=== PATIENT | male | born 1955 | race Caucasian/White ===

== ENCOUNTER 2019-11-20 11:12 | Outpatient (CLI) | payer OTHER, SELFPAY ==
--- NOTE | 2019-11-20 13:52 | PFTS_ITS ---
Date of Study:11/20/19 Date of Dictation: MECHANICS: Forced vital capacity (FVC) is normal. Forced expiratory volume in one second (FEV1) is reduced. FEV1/FVC is reduced. FLOW VOLUME LOOP: Reduced flow at all lung volumes with significant scooping. LUNG VOLUMES: Total lung capacity (TLC) is normal. Residual volume (RV) is elevated. DIFFUSING CAPACITY FOR CARBON MONOXIDE: Mild reduced. INTERPRETATION: The pulmonary function tests are consistent with moderate airflow obstruction. There is significant postbronchodilator response with improvement of forced vital capacity. Lung volumes are consistent with air trapping. Gas exchange (DLCO) is mildly reduced. MTDD
== END 2019-11-20 11:13 | disposition home or self-care (01) ==
LOC: RT 11:16
PROVIDERS: PCP Emergency Medicine Emergency Medical Services; Visit Provider Internal Medicine
DX: J44.9 Chronic obstructive pulmonary disease, unspecified (principal)
CPT/HCPCS: 94060; 94726; 94729; J7611

== ENCOUNTER → 2022-04-13 14:38 | Outpatient (BNVA) | payer OTHER, SELFPAY | PROVIDERS: PCP Emergency Medicine Emergency Medical Services; Visit Provider Thoracic Surgery (Cardiothoracic Vascular Surgery) | DX: I65.29 Occlusion and stenosis of unspecified carotid artery (principal); I10 Essential (primary) hypertension; Z87.891 Personal history of nicotine dependence | CPT/HCPCS: 99203 ==

== ENCOUNTER 2022-04-21 16:09 | Outpatient (CLI) | payer OTHER, SELFPAY ==
--- NOTE | 2022-04-21 16:15 | CT_ITS ---
WS: [id number] CT ANGIOGRAM CAROTID ARTERIES HISTORY: carotid stenosis TECHNIQUE: CT angiogram is performed of the carotid arteries. During arterial injection imaging is ob tained from the skull base to the aortic arch in 1.25 mm imaging. Coronal and sagittal reformats are submitted, MIP imaging also reviewed. Additional multiplanar reformats of the carotid arteries are griffin bmitted. NASCET criteria utilized. All CT scans at [facility] use at least one of these dose optimization techniques: automated exposure control; mA and/or kV adjustment per patient size (includ es targeted exams where dose is matched to clinical indication); or iterative reconstruction. CONTRAST: Omnipaque 350; 95 mL IV. DLP: 258.15 mGy.cm COMPARISON: None available. Right carotid: Common carotid artery: Arises normally from the innominate artery. There are a few focal calcified pl aques along the distal artery. Increasing plaque burden bifurcation. Internal carotid artery: Large amount of calcified plaque with blooming artifact. High-grade stenosis , estimated at 70%. External carotid artery: Patent. Left carotid: Common carotid artery: Arises normally from the arch. Scattered plaque. No stenosis. Internal carotid artery: Large amount of plaque at the bifurcation extending into the proximal ICA. E stimated at 77% stenosis. External carotid artery: Patent. Right vertebral artery: Unremarkable. Left vertebral artery: Occluded. Vertebral artery is not identified proximally. There is a very small amount of contrast within the distal LEFT vertebral artery approaching the skull base. Subclavian arteries: Calcified and noncalcified plaque in the subclavian arteries. Approximately 50% stenosis in the proximal LEFT subclavian artery. Plaque in the RIGHT subclavian artery with no stenos is. Upper thorax: Large RIGHT upper lobe bulla. Centrilobular emphysema. Atherosclerosis aortic arch and proximal great vessels. Thyroid gland: Normal. Osseous structures: Degenerative disc disease. Mild straightening of the normal cervical lordosis. Skull base: CT/CT angio neck 79295 IMPRESSION: 1. Large amount of calcified plaque in the cervical carotid bifurcations. 2. Proximal RIGHT cervical carotid artery stenosis estimated at 70%. Stenosis appears greater visually. 3. Proximal LEFT cervical carotid artery stenosis estimated at 77%. Stenosis a ppears greater visually. 4. 50% stenosis LEFT subclavian artery.
[2022-04-21 17:01] LABS: Blood Urea Nitrogen 10 mg/dL (8-23); Glomerular Filtration Rate 135.2 mL/min (90-130)
[2022-04-21] MEDS: iohexol 350 mg/mL 100 mL Btl IV (17:02)
== END 2022-04-21 16:10 | disposition home or self-care (01) ==
PROVIDERS: PCP Emergency Medicine Emergency Medical Services; Visit Provider Thoracic Surgery (Cardiothoracic Vascular Surgery)
DX: I65.23 Occlusion and stenosis of bilateral carotid arteries (principal); I70.8 Atherosclerosis of other arteries
CPT/HCPCS: 70498; 82565; 84520

== ENCOUNTER → 2022-05-04 15:09 | Outpatient (BNVA) | payer OTHER, SELFPAY | PROVIDERS: PCP Emergency Medicine Emergency Medical Services; Visit Provider Thoracic Surgery (Cardiothoracic Vascular Surgery) | DX: I65.29 Occlusion and stenosis of unspecified carotid artery (principal); Z87.891 Personal history of nicotine dependence | CPT/HCPCS: 99213 ==

== ENCOUNTER 2022-07-06 01:00 | Day surgery (SDC) | payer OTHER, SELFPAY ==
[2022-07-06 11:00] VITALS: BMI 24.7
--- NOTE | 2022-07-06 11:28 | ECG_ITS ---
[facility] Test Date: 2022-07-06 Pat Name: Wilson Shane Department: Room: Gender: Male Digital Marketing Specialist: : 1955 Requested By: Huey Odell Order Number: [id number] Venu MD: Elisabeth Townsend M.D. Measurements Intervals [place] Rate: 64 P: 84 [place]: 175 QRS: 85 QRSD: 91 T: 78 QT: 391 QTc: 405 Interpretive Statements SINUS RHYTHM Compared to ECG 05/16/2019 13:21:39 No significant changes Electronically Signed On 07-06-2022 20:48:34 DOCK SUPERVISOR by Elisabeth Townsend M.D. [email or web address] [email or web address].[employer]/store/OM/[id number]
--- NOTE | 2022-07-06 11:38 | ANES.PREANE2 ---
Pre-Anesthetic Assessment Height/Weight: Height 1.6 m Weight 63.503 kg Operation Date: 07/11/22 07:00 Proposed Procedures p left carotid surgery 74308,I65.23(Left) - Huey Odell MD Familial anesthetic complications: no history Social No tobacco (quit 5 years ago) 3.5 ppd for 25 years Exam alert, oriented x 3 and clear to auscultation bilaterally Airway Comments: Comments: denies but some missing History/ROS No significant history except as noted Pulmonary Chronic Obstructive Pulmonary Disease CV/HEM Stable Angina (had CP last week; took Nitro and it resolved- has not used in [address] Odell's office to CP and notified pt his procedure may need to be rescheduled) and Hypertension None reported Hepatic None reported GI Gastroesophageal Reflux Disease (controlled) Metabolic None reported Musc/skel Lower Back Pain (bulging disc low back) and Osteoarthritis/DJD Neuropsych None reported Anesthetic Plan ASA status: 3 Anesthesia: General Risk of > 500 ml blood loss (7ml/kg in children): No Medications/Allergies Home Medications Medication Instructions Recorded Confirmed Last Taken Type albuterol sulfate 90 mcg/actuation 1 puff inhalation QID 04/13/22 07/06/22 07/05/22 History aerosol inhaler amlodipine 10 mg tablet 10 mg PO DAILY 04/13/22 07/06/22 07/05/22 History ascorbic acid (vitamin C) 500 mg 500 mg PO DAILY 04/13/22 07/06/22 07/06/22 History capsule aspirin 81 mg tablet,delayed 81 mg PO DAILY 04/13/22 07/06/22 07/06/22 History release atenolol 100 mg tablet 100 mg PO DAILY 04/13/22 07/06/22 07/06/22 History baclofen 20 mg tablet 40 mg PO TID 04/13/22 07/06/22 07/06/22 History cholecalciferol (vitamin D3) 50 50 mcg PO DAILY 04/13/22 07/06/22 07/06/22 History mcg (2,000 unit) capsule dicyclomine 10 mg capsule 20 mg PO TID 04/13/22 07/06/22 07/06/22 History gabapentin 300 mg capsule 300 mg PO .hs 04/13/22 07/06/22 07/05/22 History hydralazine 25 mg tablet 25 mg PO TID 04/13/22 07/06/22 07/06/22 History lisinopril 40 mg tablet 40 mg PO DAILY 04/13/22 07/06/22 07/06/22 History meloxicam 15 mg tablet 15 mg PO BID 04/13/22 07/06/22 07/05/22 History mometasone 200 mcg/actuation HFA 2 puff inhalation BID 04/13/22 07/06/22 07/05/22 History aerosol inhaler (Asmanex HFA) omeprazole 20 mg capsule,delayed 20 mg PO DAILY 04/13/22 07/06/22 07/06/22 History release oxygen-air delivery systems 04/13/22 06/29/22 Unknown History tiotropium bromide 2.5 2 inh inhalation QAM 04/13/22 07/06/22 07/05/22 History mcg/actuation mist for inhalation (Spiriva Respimat) triamcinolone acetonide 0.1 % 1 applic topical BID #15 grams 06/29/22 07/06/22 Unknown Rx topical ointment clobetasol 0.05 % topical ointment 1 applic topical BID PRN Rash 07/06/22 07/06/22 Unknown History Allergies Allergy/AdvReac Type Severity Reaction Status Date / Time No Known Allergies Allergy Verified 07/06/22 10:51 PFSH Anesthesia Family History Father CAD (coronary artery disease) Diabetes Hypertension Mother Stroke Denies family history of Cancer Social History Smoking and tobacco status: former smoker Quit status (tobacco): has quit using tobacco Year quit tobacco: 2017 Former quit date comment: 3.5 pack per day x 10 years Alcohol intake: never Data Anesthesia Cardiac Studies: No Data to Display
[2022-07-06 11:39] LABS: Add Urine Microscopic? NO; Charge for UA Resulting for Rev
[2022-07-06 11:43] LABS: Basophils # 0.1 10^3/uL (0.0-0.1); Basophils % 1.5 %; Eosinophils # 0.2 10^3/uL (0.0-0.8); Eosinophils % 2.9 %; Hematocrit 40.9 % (42.0-52.0); Hemoglobin 13.9 g/dL (11.7-16.6); Lymphocytes # 1.2 10^3/uL (0.8-4.8); Lymphocytes % 18.3 %; Mean Corpuscular Hemoglobin 31.7 pg (28.0-34.0); Mean Corpuscular Volume 93.4 fl (80-94); Mean Platelet Volume 8.7 fL (7.4-10.4); Monocytes # 1.3 10^3/uL (0.2-0.9); Monocytes % 19.5 %; Neutrophils # 3.76 10^3/uL (1.8-7.7); Neutrophils % 57.5 %; Nucleated Red Blood Cells % 0 %; Platelet Count 330 10^3/cmm (130-400); Red Blood Count 4.38 10^6/uL (4.1-5.3); Red Cell Distribution Width 13.4 % (12.1-15.1); White Blood Count 6.6 10^3/uL (4.0-10.0)
[2022-07-06 11:53] LABS: Urine Color Yellow (Yellow)
[2022-07-06 11:54] LABS: Bilirubin Urine Neg (Negative); Blood Urine Neg (Negative); Glucose Urine UA Norm (Normal); Ketones Urine Negative (Negative); Leukocyte Esterase Urine Negative (Negative); Nitrate Urine Negative (Negative); Protein Urine Neg (Negative); Specific Gravity, Urine 1.007 (1.005-1.030); Urine Appearance Clear (CLEAR); Urobilinogen Urine Neg (Negative); pH Urine 5 (5-7)
[2022-07-06 11:56] LABS: INR 1.01 (0.8-1.2)
[2022-07-06 12:05] LABS: Anion Gap 19.7 (5-19); Blood Urea Nitrogen 8 mg/dL (8-23); Calcium 9.7 mg/dL (8.5-10.5); Carbon Dioxide 23 mmol/L (22-29); Chloride 95 mmol/L (98-107); Glomerular Filtration Rate 135.2 mL/min (90-130); Glucose 110 mg/dL (65-115); Osmolality Calculated 275 mOsm/kg (285-295); Potassium 4.7 mmol/L (3.5-5.1); Sodium 133 mmol/L (136-145)
== END 2022-07-06 23:00 | disposition home or self-care (01) ==
LOC: OR 07-25 19:12
PROVIDERS: Anesthesiology; PCP Emergency Medicine Emergency Medical Services; Visit Provider Thoracic Surgery (Cardiothoracic Vascular Surgery)
DX: Z01.818 Encounter for other preprocedural examination (principal)
CPT/HCPCS: 80048; 81003; 85025; 85610; 86850; 86900; 86920; 93005

== ENCOUNTER → 2022-07-11 12:18 | Outpatient (BNVA) | payer OTHER, SELFPAY | PROVIDERS: PCP Emergency Medicine Emergency Medical Services; Visit Provider Internal Medicine | DX: I65.29 Occlusion and stenosis of unspecified carotid artery (principal); I10 Essential (primary) hypertension; Z87.891 Personal history of nicotine dependence | CPT/HCPCS: 99204 ==

== ENCOUNTER 2022-08-11 11:52 | Outpatient (CLI) | payer OTHER, SELFPAY ==
--- NOTE | 2022-08-11 | ECG_ITS ---
[facility] Test Date: 2022-08-11 Pat Name: Wilson Shane Department: Room: Gender: Male Stallion Manager: : 1955 Requested By: Rafael Haynes Order Number: [id number] Venu MD: Rafael Haynes M.D. Interpretive Statements NAME OF STUDY: DOBUTAMINE STRESS ECHOCARDIOGRAM INDICATION: [cp/sob, ] Dobutamine stress test: Dobutamine infused per protocol. Baseline heart rate was 80 beats per minute. Baseline blood pressure was 127/89 millimeters of mercury. Target heart rate was 131 beats per minute. Maximum heart rate achieved was 155 which was 118% of the target heart rate. Maximum blood pressure was 136/91 millimeters of mercury. Total The reason for ending the test was completion of the protocol. The patient complained of shortness of breath during the stress test, which then resolved at the end of the test. ELECTROCARDIOGRAM: BASELINE: Showed sinus rhythm, normal axis, no significant ST-T changes at the baseline noted. [] EXERCISE: At the peak exercise level, [] No significant ST-T changes suggestive of ischemia noted. [] RECOVERY: During the recovery period, heart rate dropped appropriately. No significant ST-T changes in the recovery suggestive of ischemia noted. [] CONCLUSION: 1. Heart rate response was appropriate 2. Blood pressure response was appropriate. 3. Symptoms not suggestive of ischemia. 4. Electrocardiogram portion of the stress test was not suggestive of ischemia. Electronically Signed On 08-20-2022 12:39:49 CRICKET COACH by Rafael Haynes M.D. [email or web address].[facility].[employer]/store/OM/[id number]
[2022-08-11 11:59] VITALS: BMI 25.6
--- NOTE | 2022-08-11 12:12 | USCV_ITS ---
Dobutamine Stress Echo Wilson Shane Age: 67 Gender: M : 1955 Exam Date: 08/11/2022 12:29 Ordering Phys: Rafael Haynes M.D ([email or web address]) Technologist: Fiordaliza Borjas [place] [facility] [place]: sob/cp Rhythm: Sinus Patient History: Cardiac Medications: Medications in past 24 hours: Contrast: Total Dose (mL): Stress Results Protocol: Peak Dose (???g/kg/min): Duration (min:sec): 7:50 Atropine:(mg) Target HR: 132 Double Product: Resting HR: 81 Resting BP: 126 / 85 Peak HR: 144 Peak BP: 136 / 93 Max Predicted HR: 155 93 % Max Predicted HR Stress Summary: The patient's target heart rate was achieved BP Response: Normal Reason for Termination: Test terminated after reaching target heart rate (85% max predicted) Cardiac Symptoms: None ECG Analysis Resting EKG: Normal sinus rhythm, no significant ST T wave changes Stress EKG: Sinus tachycardia, no ST T wave changes Arrhythmia: None MEASUREMENTS (Male/Female) Normal Values 2D ECHO LVOT Diameter 2.0 cm LV Ejection Fraction MOD 2C 62.9 % LV Ejection Fraction 2C AL 65.1 % FINDINGS Baseline echocardiogram shows normal left ventricle size. LV systolic function is normal with EF 55 to 60%. No regional wall motion abnormalities are seen. Right ventricle is normal in size and function. With dobutamine infusion had appropriate heart rate response and reached a maximum heart rate of 155 bpm. At peak infusion, LV is hyperdynamic. No regional wall motion abnormalities were seen. No evidence of ischemia CONCLUSIONS At baseline LV systolic function is normal With dobutamine infusion, LV is hyperdynamic No regional wall motion abnormalities are seen Stress test is normal with no evidence of ischemia. Rafael Haynes MD (Electronically Signed) Final Date: 20 August 2022 12:58 S
[2022-08-11] MEDS: DOBUTtamine 200 MG in sodium chloride 0.9% 34 ML 10 MG IV (12:43)
[2022-08-11 13:12] VITALS: BP 118/79; PULSE 95
== END 2022-08-11 11:53 | disposition home or self-care (01) ==
LOC: CDL 11:54
PROVIDERS: PCP Emergency Medicine Emergency Medical Services; Visit Provider Internal Medicine
DX: R06.02 Shortness of breath (principal); R07.9 Chest pain, unspecified
CPT/HCPCS: 36415; 93017; 93350; J1250; J7050

== ENCOUNTER → 2022-08-22 11:55 | Outpatient (BNVA) | payer OTHER, SELFPAY | PROVIDERS: PCP Emergency Medicine Emergency Medical Services; Visit Provider Internal Medicine | DX: I10 Essential (primary) hypertension (principal); I65.29 Occlusion and stenosis of unspecified carotid artery; R01.1 Cardiac murmur, unspecified; Z87.891 Personal history of nicotine dependence; Z79.82 Long term (current) use of aspirin | CPT/HCPCS: 99214 ==

== ENCOUNTER → 2022-08-29 14:30 | Outpatient (BNVA) | payer OTHER, SELFPAY | PROVIDERS: PCP Emergency Medicine Emergency Medical Services; Visit Provider Thoracic Surgery (Cardiothoracic Vascular Surgery) | DX: I65.23 Occlusion and stenosis of bilateral carotid arteries (principal); Z87.891 Personal history of nicotine dependence; Z79.82 Long term (current) use of aspirin | CPT/HCPCS: 99213 ==

== ENCOUNTER 2022-09-21 | Day surgery (SDC) | payer OTHER, SELFPAY ==
[2022-09-21 09:12] VITALS: BMI 26.5
[2022-09-21 09:53] LABS: Add Urine Microscopic? NO; Charge for UA Resulting for Rev
[2022-09-21 09:55] LABS: Basophils # 0.1 10^3/uL (0.0-0.1); Basophils % 1.3 %; Eosinophils # 0.1 10^3/uL (0.0-0.8); Hematocrit 39.7 % (42.0-52.0); Hemoglobin 13.4 g/dL (11.7-16.6); Lymphocytes # 1.6 10^3/uL (0.8-4.8); Lymphocytes % 20.4 %; Mean Corpuscular HGB Conc 33.8 g/dL (30.0-36.0); Mean Corpuscular Hemoglobin 31.2 pg (28.0-34.0); Mean Corpuscular Volume 92.5 fl (80-94); Mean Platelet Volume 8.5 fL (7.4-10.4); Monocytes # 1.1 10^3/uL (0.2-0.9); Monocytes % 14.2 %; Neutrophils # 4.82 10^3/uL (1.8-7.7); Nucleated Red Blood Cells % 0 %; Platelet Count 315 10^3/cmm (130-400); Red Blood Count 4.29 10^6/uL (4.1-5.3); Red Cell Distribution Width 13.8 % (12.1-15.1); White Blood Count 7.7 10^3/uL (4.0-10.0)
[2022-09-21 10:02] LABS: Bilirubin Urine Neg (Negative); Blood Urine Neg (Negative); Glucose Urine UA Norm (Normal); Ketones Urine Negative (Negative); Leukocyte Esterase Urine Negative (Negative); Nitrate Urine Negative (Negative); Protein Urine Neg (Negative); Urine Appearance Clear (CLEAR); Urine Color Yellow (Yellow); Urobilinogen Urine Norm (Negative); pH Urine 7 (5-7)
[2022-09-21 10:23] LABS: Anion Gap 17.2 (5-19); Blood Urea Nitrogen 6 mg/dL (8-23); Calcium 9.2 mg/dL (8.5-10.5); Carbon Dioxide 20 mmol/L (22-29); Chloride 91 mmol/L (98-107); Glomerular Filtration Rate 135.2 mL/min (90-130); Glucose 115 mg/dL (65-115); Osmolality Calculated 257 mOsm/kg (285-295); Potassium 4.2 mmol/L (3.5-5.1); Sodium 124 mmol/L (136-145)
--- NOTE | 2022-09-21 16:59 | P.ANESASSM_ITS ---
Pre-Anesthetic Assessment Height/Weight: Height 1.57 m Weight 65.771 kg Preop Diagnosis: Left carotid stenosis Operation Date: 09/26/22 07:00 Proposed Procedures p left carotid surgery 26198,I65.29(Left) - Huey Odell MD Familial anesthetic complications: none Was Beta Ad taken within 24 hours: Yes Was Clonidine taken within 24 hours: N/A Social Tobacco and No alcohol Exam alert, oriented x 3 and regular rate & rhythm Airway Submandibular: within normal limits Cervical ROM: within normal limits Mallampati: Class II Dentition: chipped Pulmonary Chronic Obstructive Pulmonary Disease CV/HEM Hypertension and Peripheral Vascular Disease FINDINGS ?Baseline echocardiogram shows normal left ventricle size.? LV ?systolic function is normal with EF 55 to 60%.? No regional wall ?motion abnormalities are seen. ?Right ventricle is normal in size and function. ?With dobutamine infusion had appropriate heart rate response and ?reached a maximum heart rate of 155 bpm. ?At peak infusion, LV is hyperdynamic. No regional wall motion ?abnormalities were seen. ?No evidence of ischemia ?CONCLUSIONS ?At baseline LV systolic function is normal ?With dobutamine infusion, LV is hyperdynamic ?No regional wall motion abnormalities are seen ?Stress test is normal with no evidence of ischemia. ?Rafael Haynes MD ?(Electronically Signed) ?Final Date:? ? ? 20 August 2022 GI Gastroesophageal Reflux Disease [facility] Lower Back Pain Anesthetic Plan ASA status: 3 Anesthesia: General Other: A.liine Medications/Allergies Home Medications Medication Instructions Recorded Confirmed Last Taken Type albuterol sulfate 90 mcg/actuation 1 puff inhalation QID 04/13/22 09/21/22 09/21/22 History aerosol inhaler amlodipine 10 mg tablet 10 mg PO DAILY 04/13/22 09/21/22 09/21/22 History ascorbic acid (vitamin C) 500 mg 500 mg PO DAILY 04/13/22 09/21/22 09/21/22 Hist ory capsule aspirin 81 mg tablet,delayed 81 mg PO DAILY 04/13/22 09/21/22 09/20/22 History release atenolol 100 mg tablet 100 mg PO DAILY 04/13/22 09/21/22 09/21/22 History baclofen 20 mg tablet 40 mg PO TID 04/13/22 09/21/22 09/21/22 History cholecalciferol (vitamin D3) 50 50 mcg PO DAILY 04/13/22 09/21/22 09/21/22 History mcg (2,000 unit) capsule dicyclomine 10 mg capsule 20 mg PO TID 04/13/22 09/21/22 09/21/22 History gabapentin 300 mg capsule 300 mg PO .hs 04/13/22 09/21/22 09/21/22 History hydralazine 25 mg tablet 25 mg PO TID 04/13/22 09/21/22 09/21/22 History lisinopril 40 mg tablet 40 mg PO DAILY 04/13/22 09/21/22 09/21/22 History meloxicam 15 mg tablet 15 mg PO BID 04/13/22 09/21/22 09/20/22 History mometasone 200 mcg/actuation HFA 2 puff inhalation BID 04/13/22 09/21/22 09/21/22 History aerosol inhaler (Asmanex HFA) omeprazole 20 mg capsule,delayed 20 mg PO DAILY 04/13/22 09/21/22 09/21/22 History release tiotropium bromide 2.5 2 inh inhalation QAM 04/13/22 09/21/22 09/21/22 History mcg/actuation mist for inhalation (Spiriva Respimat) triamcinolone acetonide 0.1 % 1 applic topical BID #15 grams 06/29/22 09/21/22 09/21/22 Rx topical ointment clobetasol 0.05 % topical ointment 1 applic topical BID PRN Rash 07/06/22 09/21/22 09/21/22 History Allergies Allergy/AdvReac Type Severity Reaction Status Date / Time No Known Allergies Allergy Verified 09/21/22 09:06 [facility] Anesthesia Medical History (Updated 08/29/22 @ 16:55 by Huey Odell MD) Carotid stenosis, bilateral COPD (chronic obstructive pulmonary disease) Hypertension Multiple sclerosis Family History Father CAD (coronary artery disease) Diabetes Hypertension Mother Stroke Denies family history of Cancer Social History Smoking and tobacco status: former smoker Quit status (tobacco): has quit using tobacco Year quit tobacco: 2017 Former quit date comment: 3.5 pack per day x 10 years Alcohol intake: never Data Anesthesia 09/21/22 09:35 09/21/22 09:35 Short CBC 09/21/22 Range/Units 09:35 WBC 7.7 (4.0-10.0) 10^3/uL Hgb 13.4 (11.7-16.6) g/dL Hct 39.7 L (42.0-52.0) % MCV 92.5 (80-94) fl Plt Count 315 (130-400) 10^3/cmm Neut % (Auto) 63.0 % Neut # (Auto) 4.82 (1.8-7.7) 10^3/uL BMP 09/21/22 09:35 Sodium 124 L Potassium 4.2 Chloride 91 L Carbon Dioxide 20 L BUN 6 L Creatinine 0.6 L Glucose 115 Calcium 9.2 Urine 09/21/22 Range/Units 09:30 Urine Color Yellow (Yellow) Urine Appearance Clear (CLEAR) Urine pH 7 (5-7) Ur Specific [place] 1.010 (1.005-1.030) Urine Protein Neg (Negative) Urine Glucose (UA) Norm (Normal) Urine Ketones Negative (Negative) Urine Nitrate Negative (Negative) Urine Bilirubin Neg (Negative) Ur Leukocyte Esterase Negative (Negative) Cardiac Studies: Stress Echocardiogram 08/11/22
== END 2022-09-21 23:00 | disposition home or self-care (01) ==
LOC: OR 11-08 14:17
PROVIDERS: PCP Emergency Medicine Emergency Medical Services; Visit Provider Thoracic Surgery (Cardiothoracic Vascular Surgery)
DX: Z01.818 Encounter for other preprocedural examination (principal); I65.29 Occlusion and stenosis of unspecified carotid artery
CPT/HCPCS: 80048; 81003; 85025

== ENCOUNTER 2022-12-28 13:04 | Emergency (ER) | payer OTHER, SELFPAY ==
[2022-12-28 13:07] VITALS: BP 143/74; PULSE 64; RESP 14; TEMP 36.6; O2SAT 97; BMI 24.7
[2022-12-28 14:43] VITALS: BP 141/72
--- NOTE | 2022-12-28 14:57 | W.ED.RECABL ---
HPI - Recheck/Abnormal Lab/Rx General: Chief Complaint: Recheck/Abnormal Lab/Rx Stated Complaint: low BP Time Seen by Provider: 12/28/22 15:02 History of Present Illness: Patient is concerned about low blood pressure. He got a couple readings in the 70s at his home today and he felt fine but a couple of times he might have felt a little dizzy if he is thinking back on it. He states that he recently had carotid endarterectomy bilateral sides because he had a mini stroke in between the first side and when the second side was scheduled. Patient states that he has been feeling well but today his blood pressure was low and he called and they advised him to come to the ER. Review of Systems Const: Denies: fever(s) or chills Card: Reports: other (Low blood pressure); Denies: chest pain or palpitations Resp: Denies: dyspnea, productive cough or non-productive cough PFSH ED PFSH: Medical History Carotid stenosis, bilateral COPD (chronic obstructive pulmonary disease) Hypertension Multiple sclerosis Family History Father CAD (coronary artery disease) Diabetes Hypertension Mother Stroke Denies family history of Cancer Social History Smoking and tobacco status: former smoker Quit status (tobacco): has quit using tobacco Year quit tobacco: 2017 Former quit date comment: 3.5 pack per day x 10 years Alcohol intake: never Substance/Drug Use: never Physical Exam Const: COMMON NORMALS: no acute distress, patient oriented x3, healthy appearing and alert Neck/C-Spine: OTHER: Postsurgical wound right side from recent CEA Resp: COMMON NORMALS: normal respiratory effort, No use of accessory muscles and clear to auscultation bilaterally AUSCULTATION: clear to auscultation bilaterally Cardio: COMMON NORMALS: regular rate, regular rhythm, S1 normal heart sound present and S2 normal heart sound present RATE: regular rate RHYTHM: regular rhythm HEART SOUNDS: S1 normal heart sound present and S2 normal heart sound present Neuro: COMMON NORMALS: patient oriented x3 SENSORIUM/ORIENTATION: Yes alert Course Vital Signs: Vital signs: Vital Signs Temperature 97.9 F 12/28/22 13:07 Pulse Rate 64 07/06/23 13:07 Respiratory Rate 14 12/28/22 13:07 Blood Pressure 141/72 12/28/22 14:43 Pulse Oximetry 97 12/28/22 13:07 Oxygen Delivery Me thod Room Air 12/28/22 13:07 MDM - Recheck/Abnormal Lab/Rx Medical Decision Making Patient is in today for low blood pressure per his reports. It is difficult to determine if he is having blood pressure variations secondary to his recent carotid endarterectomy and stimulation of barrier receptors in the neck or if his blood pressure machine is not correctly calibrated. Patient is asymptomatic. His blood pressure in the ER has been 140s to 150s systolic over 70s. Orthostatic blood pressures lying down 154/76, sitting up 152/74, standing 125/74. We discussed the variations in blood pressure after carotid endarterectomy procedure. At this time his blood pressure is completely stable. I recommended the patient follow-up with his surgeon and also have his blood pressure cuff correlated with another cuff for accuracy. Patient wishes to be discharged home at this time. He is agreeable to return to ER for any new or worsening symptoms. Discharge Plan Discharge Patient Disposition: Home Clinical Impression: Physically well but worried Condition: Stable Prescriptions: No Action meloxicam 15 mg tablet 15 mg PO BID amlodipine 10 mg tablet 10 mg PO DAILY cholecalciferol (vitamin D3) 50 mcg (2,000 unit) capsule 50 mcg PO DAILY aspirin 81 mg tablet,delayed release (DR/EC) 81 mg PO DAILY atenolol 100 mg tablet 100 mg PO DAILY hydralazine 25 mg tablet 25 mg PO TID omeprazole 20 mg capsule,delayed release(DR/EC) 20 mg PO DAILY gabapentin 300 mg capsule 300 mg PO .hs baclofen 20 mg tablet 40 mg PO TID lisinopril 40 mg tablet 40 mg PO DAILY ascorbic acid (vitamin C) 500 mg capsule 500 mg PO DAILY dicyclomine 10 mg capsule 20 mg PO TID Asmanex HFA 200 mcg/actuation HFA aerosol inhaler 2 puff inhalation BID Spiriva Respimat 2.5 mcg/actuation mist 2 inh inhalation QAM albuterol sulfate 90 mcg/actuation HFA aerosol inhaler 1 puff inhalation QID triamcinolone acetonide 0.1 % ointment 1 applic topical BID Qty: 15 1RF Rx Instructions: Apply to affected areas twice daily, as needed. clobetasol 0.05 % ointment 1 applic topical BID PRN (Reason: Rash; L30.8) Qty: 45 1RF Rx Instructions: Apply to affected area no more than 2 weeks per month, not for face/skin folds Discharge Orders: Discharge ED (Routine); Ordered 12/28/22 Ordered By: Avril Lion Referrals: Reese Parrish, [Primary Care Provider] - Discharge Diet: Usual diet Discharge Activity: Resume usual activity Activity Restrictions/Additional Instructions: At this time your blood pressure is within normal limits even upper limits of normal/high. Given your recent surgery you could be experiencing variations in your blood pressure. I recommend that you follow-up with your surgeon also having your doctors office correlate their blood pressure cuff to your blood pressure cuff would be a good idea. Should you have any new or worsening symptoms please return to the ER immediately. Coding Level of Care Code ED Day Habilitation Supervisor for Reanna Tejada
[2022-12-28 15:05] VITALS: BP 148/79; PULSE 64; RESP 14; O2SAT 98
== END 2022-12-28 15:06 | disposition home or self-care (01) ==
PROVIDERS: Emergency Provider Nurse Practitioner Family; PCP Emergency Medicine Emergency Medical Services
DX: Z71.1 Person with feared health complaint in whom no diagnosis is made (principal); Z79.82 Long term (current) use of aspirin; J44.9 Chronic obstructive pulmonary disease, unspecified; I10 Essential (primary) hypertension; G35 Multiple sclerosis; Z87.891 Personal history of nicotine dependence
CPT/HCPCS: 99282

== ENCOUNTER 2023-01-22 14:52 | Emergency (ER) | payer OTHER, SELFPAY ==
[2023-01-22 15:54] VITALS: BP 136/87; PULSE 62; RESP 14; TEMP 36.3; O2SAT 95; BMI 25.0
--- NOTE | 2023-01-22 16:10 | ED_ITS ---
HPI - Skin/Abscess/Foreign Bdy General: Chief complaint: Skin/Abscess/Foreign Body Stated complaint: va sent, full body rash Time Seen by Provider: 01/22/23 16:01 History of Present Illness: Patient is a 67-year-old male who comes to the ED with pruritic rash. Patient says symptoms started this morning when he woke up. Rash started on his abdomen and has now spread to his back and upper and lower extremities bilaterally. Rash described as red raised bumps and says that it is very itchy. Denies any other symptoms such as fevers, chills, shortness of breath, lip or tongue swelling, vomiting, diarrhea. Denies any past allergic reactions. Denies recently being outdoors or in the [place] and exposure to any plants. Denies any change in medications, lotions, detergents or soaps. Associated symptoms: Deny chills, fever(s), nausea or vomiting Review of Systems Const: Denies: fever(s), chills or fatigue Eyes: Denies: change in vision or eye discomfort ENMT: Denies: throat pain, odynophagia, nasal discharge or nasal congestion Card: Denies: chest pain, palpitations, edema, swelling of feet/ankles, dyspnea on exertion or orthopnea Resp: Denies: dyspnea, productive cough or non-productive cough GI: Denies: abdominal pain, nausea, vomiting, diarrhea, constipation or hematochezia : Denies: flank pain, difficulty urinating, dysuria or hematuria Musc: Denies: neck pain, back pain or extremity swelling Skin/Breast: Reports: rash and pruritus; Denies: new lesions Neuro: Denies: headache(s), numbness in extremities or weakness in extremities PFSH ED PFSH: Medical History Carotid stenosis, bilateral COPD (chronic obstructive pulmonary disease) Hypertension Multiple sclerosis Family History Father CAD (coronary artery disease) Diabetes Hypertension Mother Stroke Denies family history of Cancer Social History Smoking and tobacco status: former smoker Quit status (tobacco): has quit using tobacco Year quit tobacco: 2017 Former quit date comment: 3.5 pack per day x 10 years Alcohol intake: never Substance/Drug Use: never Physical Exam Const: COMMON NORMALS: no acute distress, patient oriented x3, healthy appearing and alert HENMT: COMMON NORMALS: normocephalic HEAD & SCALP: normocephalic MOUTH: Normal oral and palatal mucosa present THROAT: posterior oropharynx normal and uvula midline Neck/C-Spine: COMMON NORMALS: supple GENERAL: Yes normal visual inspection Resp: COMMON NORMALS: normal respiratory effort, No retractions, No use of accessory muscles and clear to auscultation bilaterally AUSCULTATION: clear to auscultation bilaterally Cardio: COMMON NORMALS: regular rate, regular rhythm, S1 normal heart sound present, S2 normal heart sound present, No gallops present (Cardio), No clicks present (Cardio), No murmurs present (Cardio) and Peripheral pulses 2+ throughout RATE: regular rate RHYTHM: regular rhythm HEART SOUNDS: S1 normal heart sound present and S2 normal heart sound present PERIPHERAL PULSES: Peripheral pulses 2+ throughout GI: COMMON NORMALS: Normal to inspection, nondistended, normoactive bowel sounds present, Soft to palpation, non-tender and no masses PALPATION: Yes Soft to palpation : COMMON NORMALS: Yes no CVA tenderness BLADDER/KIDNEY EXAM: Yes no CVA tenderness Back/Pelvis: COMMON NORMALS: no CVA tenderness Extremity: COMMON NORMALS: normal to inspection Neuro: COMMON NORMALS: patient oriented x3 SENSORIUM/ORIENTATION: Yes alert GAIT: Yes Normal gait present Skin: NARRATIVE SKIN EXAM: Patient has hives type erythemic maculopapular rash on abdomen, back, upper and lower extremities bilaterally. GENERAL SKIN EXAM: dry skin Course Vital Signs: Vital signs: Vital Signs Temperature 97.4 F L 01/22/23 15:54 Pulse Rate 62 01/22/23 15:54 Respiratory Rate 14 01/22/23 15:54 Blood Pressure 136/87 01/22/23 15:54 Pulse Oximetry 95 01/22/23 15:54 Oxygen Delivery Me thod Room Air 01/22/23 15:54 MDM - Skin/Abscess/Foreign Bdy Medicial Decision Making Patient is a 67-year-old male who comes to the ED with pruritic rash. Patient says symptoms started this morning when he woke up. Rash started on his abdomen and has now spread to his back and upper and lower extremities bilaterally. Rash described as red raised bumps and says that it is very itchy. Denies any other symptoms such as fevers, chills, shortness of breath, lip or tongue swelling, vomiting, diarrhea. Denies any past allergic reactions. Denies recently being outdoors or in the [place] and exposure to any plants. Denies any change in medications, lotions, detergents or soaps. Vitals are stable. Patient appears nontoxic in no acute distress. Patient has hives type erythemic maculopapular rash on abdomen, back, upper and lower extremities bilaterally. Rest of exam is benign. Patient was given a dose of Depo-Medrol IM and Benadryl here in the ED. His symptoms improved and he was stable for discharge home. He was diagnosed with urticaria and sent home with a prescription for a 5-day course of prednisone. Return to ED precautions given. Follow-up with his PCP within the next week for reevaluation. Patient understood and agreed with plan. Discharge Plan Discharge Patient Disposition: Home Clinical Impression: Urticaria Condition: Stable Prescriptions: New prednisone 20 mg tablet 20 mg PO BID 5 Days Qty: 10 0RF No Action meloxicam 15 mg tablet 15 mg PO BID amlodipine 10 mg tablet 10 mg PO DAILY cholecalciferol (vitamin D3) 50 mcg (2,000 unit) capsule 50 mcg PO DAILY aspirin 81 mg tablet,delayed release (DR/EC) 81 mg PO DAILY atenolol 100 mg tablet 100 mg PO DAILY hydralazine 25 mg tablet 25 mg PO TID omeprazole 20 mg capsule,delayed release(DR/EC) 20 mg PO DAILY gabapentin 300 mg capsule 300 mg PO .hs baclofen 20 mg tablet 40 mg PO TID lisinopril 40 mg tablet 40 mg PO DAILY ascorbic acid (vitamin C) 500 mg capsule 500 mg PO DAILY dicyclomine 10 mg capsule 20 mg PO TID Asmanex HFA 200 mcg/actuation HFA aerosol inhaler 2 puff inhalation BID Spiriva Respimat 2.5 mcg/actuation mist 2 inh inhalation QAM albuterol sulfate 90 mcg/actuation HFA aerosol inhaler 1 puff inhalation QID triamcinolone acetonide 0.1 % ointment 1 applic topical BID Qty: 15 1RF Rx Instructions: Apply to affected areas twice daily, as needed. clobetasol 0.05 % ointment 1 applic topical BID PRN (Reason: Rash; L30.8) Qty: 45 1RF Rx Instructions: Apply to affected area no more than 2 weeks per month, not for face/skin folds Discharge Orders: Discharge ED (Routine); Ordered 01/22/23 Ordered By: Alvarado Mcdonough Referrals: Reese Parrish, DO [Primary Care Provider] - Discharge Diet: Regular Discharge Activity: Increase activity as tolerated Patient Instructions: Urticaria (ED) Activity Restrictions/Additional Instructions: Follow-up with medical provider as directed in the next 5 to 7 days for reevaluation. You can take [id number] Benadryl as needed to help with rash. Also use [id number] steroid creams on rash to help with symptoms. Start taking prescribed prednisone tomorrow since she received an injection dose of steroid today. Return to the ER or your medical provider if condition worsens. Please read and understand discharge instructions. Thank you for choosing [facility] for your healthcare needs today. Please realize this is an emergency room and that we are providing you with a medical screening exam and this may not be complete and all inclusive of all the testing and or work up that you may need to determine your ailment or severity of your illness. It is very important that you follow up as instructed or that you return to the Emergency Department should you have concerns or if your condition changes or worsens in any way. Coding Level of Care Code ED Public Service Representative for Reanna Tejada
[2023-01-22] MEDS: diphenhydrAMINE 25 mg Capsule PO (16:15)
[2023-01-22] MEDS: methylPREDNISolone (DEPO) 80 MG/ML INJ 1 mL IM (16:24)
== END 2023-01-22 16:45 | disposition home or self-care (01) ==
PROVIDERS: Emergency Provider Physician Assistant; PCP Emergency Medicine Emergency Medical Services
DX: L50.9 Urticaria, unspecified (principal); Z79.82 Long term (current) use of aspirin; J44.9 Chronic obstructive pulmonary disease, unspecified; I10 Essential (primary) hypertension; G35 Multiple sclerosis; Z87.891 Personal history of nicotine dependence
CPT/HCPCS: 96372; 99284; J1040

== ENCOUNTER → 2023-03-26 13:12 | Outpatient (BNVA) | payer OTHER, SELFPAY | PROVIDERS: PCP Emergency Medicine Emergency Medical Services; Referring Provider Emergency Medicine Emergency Medical Services; Visit Provider Internal Medicine Cardiovascular Disease | DX: I10 Essential (primary) hypertension (principal); I65.29 Occlusion and stenosis of unspecified carotid artery; J44.9 Chronic obstructive pulmonary disease, unspecified; G35 Multiple sclerosis; Z98.890 Other specified postprocedural states; Z87.891 Personal history of nicotine dependence | CPT/HCPCS: 99204 ==

== ENCOUNTER 2023-04-06 12:15 | Emergency (ER) | payer OTHER, SELFPAY ==
[2023-04-06 12:21] VITALS: BP 148/79; PULSE 77; RESP 17; TEMP 36.6; O2SAT 97; BMI 23.8
--- NOTE | 2023-04-06 13:17 | W.ED.RECABL ---
Documented by User: LAM Bello 04/06/23 15:55 HPI - Recheck/Abnormal Lab/Rx General: Chief Complaint: Recheck/Abnormal Lab/Rx Stated Complaint: va sent abnormal lab work Time Seen by Provider: 04/06/23 13:17 History of Present Illness: A 68-year-old male [facility] of [facility] chest x-ray, chest pain, difficulty breathing. The PCP at the facility felt patient needed to have a CT scan of his chest due to abnormalities. Patient reports that he has had cough with productive sputum for about 1 week now. Patient does have a history of COPD, atherosclerosis, hypertension and osteoarthritis and takes medicine for GERD. Patient reported fever yesterday. Patient has had a COVID-19 test that was negative. Patient appears mildly unwell but not toxic. Spouse reports that patient recently been put on atorvastatin and Plavix for his atherosclerosis after a carotid artery repair. Review of Systems Const: Reports: fever(s) and malaise Resp: Reports: productive cough PFSH ED PFSH: Medical History (Updated 04/06/23 @ 15:52 by LAM Bello) Carotid stenosis, bilateral COPD (chronic obstructive pulmonary disease) Hypertension Multiple sclerosis Surgical History (Updated 03/26/23 @ 15:01 by Ernesto Mathews MD) H/O carotid endarterectomy Family History Father CAD (coronary artery disease) Diabetes Hypertension Mother Stroke Denies family history of Cancer Social History Smoking and tobacco/nicotine status: former use of tobacco/nicotine Quit status (tobacco/nicotine): has quit using Year quit tobacco: 2018 Former quit date comment: 3.5 pack per day x 10 years Alcohol intake: never Substance/Drug Use: never Physical Exam Const: COMMON NORMALS: alert HENMT: COMMON NORMALS: normocephalic HEAD & SCALP: normocephalic MOUTH: Normal oral and palatal mucosa present Neck/C-Spine: COMMON NORMALS: full ROM and no meningeal signs Resp: COMMON NORMALS: normal respiratory effort AUSCULTATION: diminished lung sounds GI: COMMON NORMALS: Soft to palpation and non-tender PALPATION: Yes Soft to palpation Back/Pelvis: COMMON NORMALS: thoracic and lumbar spine normal to inspection Extremity: COMMON NORMALS: no pedal edema Neuro: SENSORIUM/ORIENTATION: Yes alert MENINGEAL SIGNS: Yes no meningeal signs Skin: COMMON NORMALS: turgor normal GENERAL SKIN EXAM: turgor normal Course Vital Signs: Vital signs: Vital Signs Temperature 97.8 F 04/06/23 12:21 Pulse Rate 78 04/06/23 14:52 Respiratory Rate 18 04/06/23 14:52 Blood Pressure 154/98 04/06/23 14:52 Pulse Oximetry 97 04/06/23 14:52 Oxygen Delivery Me thod Room Air 04/06/23 14:52 MDM - Recheck/Abnormal Lab/Rx Medical Decision Making Patient was referred to the emergency department from primary care office at [facility] for abnormal chest x-ray. Patient has had cough of some fever for about 1 week now. Patient does report productive sputum of molina to green in color. Lungs have decreased air movement. Vital signs are normal except for some mild elevation in blood pressure. Differential diagnosis includes pneumonia, pulmonary mass, PE. Laboratory values noted a normal white blood cell count, sodium was 130, CRP was elevated at 130, D-dimer is elevated at 1.9. CT of the chest for PE rule out was performed noting no pulmonary embolism but a cavitating lung mass was noted in the right upper lobe. Reviewed exam with patient and family with recommendations for follow-up with pulmonology for further evaluation of mass with biopsy. Patient be started on antibiotics and call to make appointment, return to ER for worsening symptoms. Patient and family both reported understanding. I reviewed this with Dr. Palomo who agreed with this plan. Lab Data 04/06/23 13:41 04/06/23 13:41 Laboratory Results WBC 6.31 10^3/uL (3.29-11.43) 04/06/23 13:41 RBC 3.92 10^6/uL (3.85-5.65) 04/06/23 13:41 Hgb 11.60 g/dL (11.27-16.99) 04/06/23 13:41 Hct 37.7 % (37-53) 04/06/23 13:41 MCV 96.2 fl (82-101) 04/06/23 13:41 MCH 29.6 pg (27-33) 04/06/23 13:41 MCHC 30.8 g/dL (30-55) 04/06/23 13:41 RDW 13.7 % (12.1-15.1) 04/06/23 13:41 Plt Count 385 10^3/cmm (157-399) 04/06/23 13:41 MPV 8.3 fL (7.4-10.4) 04/06/23 13:41 Neut % (Auto) 63.3 % 04/06/23 13:41 Lymph % (Auto) 15.2 % 04/06/23 13:41 [place]ill % (Auto) 17.4 % 04/06/23 13:41 Eos % (Auto) 2.5 % 04/06/23 13:41 Baso % (Auto) 1.3 % 04/06/23 13:41 Neut # (Auto) 3.99 10^3/uL (1.8-7.7) 04/06/23 13:41 Lymph # (Auto) 1.0 10^3/uL (0.8-4.8) 04/06/23 13:41 [place] # (Auto) 1.1 10^3/uL (0.2-0.9) H 04/06/23 13:41 Eos # (Auto) 0.2 10^3/uL (0.0-0.8) 04/06/23 13:41 Baso # (Auto) 0.1 10^3/uL (0.0-0.1) 04/06/23 13:41 Nucleated RBC % (auto) 0 % 04/06/23 13:41 Nucleated RBCs # 0.0 /100WBC 04/06/23 13:41 D-Dimer 1.90 ug/mLFEU (0-0.59) H 04/06/23 13:41 Sodium 130 mmol/L (136-145) L 04/06/23 13:41 Potassium 4.8 mmol/L (3.5-5.1) 04/06/23 13:41 Chloride 94 mmol/L (98-107) L 04/06/23 13:41 Carbon Dioxide 23 mmol/L (22-29) 04/06/23 13:41 Anion Gap 17.8 (5-19) 04/06/23 13:41 BUN 8 mg/dL (8-23) 04/06/23 13:41 Creatinine 0.6 mg/dL (0.7-1.2) L 04/06/23 13:41 GFR Calculation 134.8 mL/min (90-130) H 04/06/23 13:41 Glucose 95 mg/dL (65-115) 04/06/23 13:41 Calculated Osmolality 268 mOsm/kg (285-295) L 04/06/23 13:41 Calcium 9.3 mg/dL (8.5-10.5) 04/06/23 13:41 Total Bilirubin 0.3 mg/dL (0.15-1.2) 04/06/23 13:41 AST 21 U/L (0-40) 04/06/23 13:41 ALT 24 U/L (0-41) 04/06/23 13:41 Alkaline Phosphatase 62 U/L (40-130) 04/06/23 13:41 C-Reactive Protein 130.2 mg/L (0.0-4.9) H 04/06/23 13:41 Total Protein 8.1 g/dL (6.6-8.7) 04/06/23 13:41 Albumin 3.2 g/dL (3.5-5.2) L 04/06/23 13:41 Globulin 4.9 g/dL (1.3-4.6) H 04/06/23 13:41 All radiology interpretation(s) finalized by discharge EKG Data EKG 1: EKG interpretation date: 04/06/23 EKG interpretation time: 13:35 Interpretation: EKG shows sinus rhythm with no ST elevation or ectopy noted. No prior exam was available for immediate comparison. Patient had a regular rate at 72 bpm. Computer generated interpretation: Sinus rhythm, minimal voltage criteria for LVH, consider normal variant. Early repolarization, borderline EKG, unconfirmed report. Discharge Plan Discharge Patient Disposition: Home Clinical Impression: Cavitating mass in right upper lung lobe Condition: Stable Prescriptions: New doxycycline hyclate 100 mg capsule 100 mg PO BID 10 Days Qty: 20 0RF No Action meloxicam 15 mg tablet 15 mg PO BID amlodipine 10 mg tablet 10 mg PO QAM cholecalciferol (vitamin D3) 50 mcg (2,000 unit) capsule 50 mcg PO EVERY OTHER DAY aspirin 81 mg tablet,delayed release (DR/EC) 81 mg PO QAM atenolol 100 mg tablet 50 mg PO BID hydralazine 25 mg tablet 25 mg PO TID omeprazole 20 mg capsule,delayed release(DR/EC) 20 mg PO BID gabapentin 300 mg capsule 300 mg PO BEDTIME lisinopril 40 mg tablet 40 mg PO QAM ascorbic acid (vitamin C) 500 mg capsule 500 mg PO QAM dicyclomine 10 mg capsule 20 mg PO TID Asmanex HFA 200 mcg/actuation HFA aerosol inhaler 2 puff inhalation BID Spiriva Respimat 2.5 mcg/actuation mist 2 inh inhalation QAM albuterol sulfate 90 mcg/actuation HFA aerosol inhaler 1 puff inhalation QID clobetasol 0.05 % ointment 1 applic topical BID PRN (Reason: Rash; L30.8) Qty: 45 1RF Rx Instructions: Apply to affected area no more than 2 weeks per month, not for face/skin folds Flexeril 10 mg Tablet 10 mg PO DAILY PRN (Reason: Muscle Spasm) atorvastatin 20 mg Tablet 20 mg PO QAM albuterol sulfate 2.5 mg /3 mL (0.083 %) Solution For Nebulization 2.5 mg INHALATION QID clopidogrel 75 mg tablet 75 mg PO QAM baclofen 20 mg Tablet 40 mg PO TID calcium polycarbophil 625 mg Tablet 625 mg PO BID folic acid 1 mg Tablet 1 mg PO QAM triamcinolone acetonide 0.1 % ointment 1 applic topical BID PRN (Reason: unknown) Discharge Orders: Discharge ED (Routine); Ordered 04/06/23 Ordered By: Huey Lomeli Referrals: Zen Perez MD [Physician] - Reese Parrish DO [Primary Care Provider] - Patient Instructions: Lung Cancer (DC) Activity Restrictions/Additional Instructions: Take antibiotics as directed. Contact Dr. Perez, quantitative consultant, Sunday morning for further evaluation and treatment. Follow-up with primary care otherwise as noted. Return to ED for new concerns or worsening symptoms such as increasing shortness of breath, severe chest pain, inability to hold fluids down. Coding Level of Care Code ED Front Desk Auxiliary for Chg Fwd Documented by User: Fabio Palomo DO 04/06/23 17:10 HPI - Recheck/Abnormal Lab/Rx General: Chief Complaint: Recheck/Abnormal Lab/Rx Stated Complaint: va sent abnormal lab work Time Seen by Provider: 04/06/23 13:17 PFSH ED PFSH: Medical History (Updated 04/06/23 @ 15:52 by LAM Bello) Carotid stenosis, bilateral COPD (chronic obstructive pulmonary disease) Hypertension Multiple sclerosis Surgical History (Updated 03/26/23 @ 15:01 by Ernesto Mathews MD) H/O carotid endarterectomy Family History Father CAD (coronary artery disease) Diabetes Hypertension Mother Stroke Denies family history of Cancer Social History Smoking and tobacco/nicotine status: former use of tobacco/nicotine Quit status (tobacco/nicotine): has quit using Year quit tobacco: 2017 Former quit date comment: 3.5 pack per day x 10 years Alcohol intake: never Substance/Drug Use: never Course Vital Signs: Vital signs: Vital Signs Temperature 97.8 F 04/06/23 12:21 Pulse Rate 78 04/06/23 14:52 Respiratory Rate 18 04/06/23 14:52 Blood Pressure 154/98 04/06/23 14:52 Pulse Oximetry 97 04/06/23 14:52 Oxygen Delivery Me thod Room Air 04/06/23 14:52 MDM - Recheck/Abnormal Lab/Rx Medical Decision Making Patient was referred to the emergency department from primary care office at [facility] for abnormal chest x-ray. Patient has had cough of some fever for about 1 week now. Patient does report productive sputum of molina to green in color. Lungs have decreased air movement. Vital signs are normal except for some mild elevation in blood pressure. Differential diagnosis includes pneumonia, pulmonary mass, PE. Laboratory values noted a normal white blood cell count, sodium was 130, CRP was elevated at 130, D-dimer is elevated at 1.9. CT of the chest for PE rule out was performed noting no pulmonary embolism but a cavitating lung mass was noted in the right upper lobe. Reviewed exam with patient and family with recommendations for follow-up with pulmonology for further evaluation of mass with biopsy. Patient be started on antibiotics and call to make appointment, return to ER for worsening symptoms. Patient and family both reported understanding. I reviewed this with Dr. Palomo who agreed with this plan. Chart reviewed and patient discussed with midlevel. Agree with assessment and plan. Lab Data 04/06/23 13:41 04/06/23 13:41 Laboratory Results WBC 6.31 10^3/uL (3.29-11.43) 04/06/23 13:41 RBC 3.92 10^6/uL (3.85-5.65) 04/06/23 13:41 Hgb 11.60 g/dL (11.27-16.99) 04/06/23 13:41 Hct 37.7 % (37-53) 04/06/23 13:41 MCV 96.2 fl (82-101) 04/06/23 13:41 MCH 29.6 pg (27-33) 04/06/23 13:41 MCHC 30.8 g/dL (30-55) 04/06/23 13:41 RDW 13.7 % (12.1-15.1) 04/06/23 13:41 Plt Count 385 10^3/cmm (157-399) 04/06/23 13:41 MPV 8.3 fL (7.4-10.4) 04/06/23 13:41 Neut % (Auto) 63.3 % 04/06/23 13:41 Lymph % (Auto) 15.2 % 04/06/23 13:41 [place] % (Auto) 17.4 % 04/06/23 13:41 Eos % (Auto) 2.5 % 04/06/23 13:41 Baso % (Auto) 1.3 % 04/06/23 13:41 Neut # (Auto) 3.99 10^3/uL (1.8-7.7) 04/06/23 13:41 Lymph # (Auto) 1.0 10^3/uL (0.8-4.8) 04/06/23 13:41 [place]ill # (Auto) 1.1 10^3/uL (0.2-0.9) H 04/06/23 13:41 Eos # (Auto) 0.2 10^3/uL (0.0-0.8) 04/06/23 13:41 Baso # (Auto) 0.1 10^3/uL (0.0-0.1) 04/06/23 13:41 Nucleated RBC % (auto) 0 % 04/06/23 13:41 Nucleated RBCs # 0.0 /100WBC 04/06/23 13:41 D-Dimer 1.90 ug/mLFEU (0-0.59) H 04/06/23 13:41 Sodium 130 mmol/L (136-145) L 04/06/23 13:41 Potassium 4.8 mmol/L (3.5-5.1) 04/06/23 13:41 Chloride 94 mmol/L (98-107) L 04/06/23 13:41 Carbon Dioxide 23 mmol/L (22-29) 04/06/23 13:41 Anion Gap 17.8 (5-19) 04/06/23 13:41 BUN 8 mg/dL (8-23) 04/06/23 13:41 Creatinine 0.6 mg/dL (0.7-1.2) L 04/06/23 13:41 GFR Calculation 134.8 mL/min (90-130) H 04/06/23 13:41 Glucose 95 mg/dL (65-115) 04/06/23 13:41 Calculated Osmolality 268 mOsm/kg (285-295) L 04/06/23 13:41 Calcium 9.3 mg/dL (8.5-10.5) 04/06/23 13:41 Total Bilirubin 0.3 mg/dL (0.15-1.2) 04/06/23 13:41 AST 21 U/L (0-40) 04/06/23 13:41 ALT 24 U/L (0-41) 04/06/23 13:41 Alkaline Phosphatase 62 U/L (40-130) 04/06/23 13:41 C-Reactive Protein 130.2 mg/L (0.0-4.9) H 04/06/23 13:41 Total Protein 8.1 g/dL (6.6-8.7) 04/06/23 13:41 Albumin 3.2 g/dL (3.5-5.2) L 04/06/23 13:41 Globulin 4.9 g/dL (1.3-4.6) H 04/06/23 13:41 Discharge Plan Discharge Patient Disposition: Home Clinical Impression: Cavitating mass in right upper lung lobe Condition: Stable Prescriptions: New doxycycline hyclate 100 mg capsule 100 mg PO BID 10 Days Qty: 20 0RF No Action meloxicam 15 mg tablet 15 mg PO BID amlodipine 10 mg tablet 10 mg PO QAM cholecalciferol (vitamin D3) 50 mcg (2,000 unit) capsule 50 mcg PO EVERY OTHER DAY aspirin 81 mg tablet,delayed release (DR/EC) 81 mg PO QAM atenolol 100 mg tablet 50 mg PO BID hydralazine 25 mg tablet 25 mg PO TID omeprazole 20 mg capsule,delayed release(DR/EC) 20 mg PO BID gabapentin 300 mg capsule 300 mg PO BEDTIME lisinopril 40 mg tablet 40 mg PO QAM ascorbic acid (vitamin C) 500 mg capsule 500 mg PO QAM dicyclomine 10 mg capsule 20 mg PO TID Asmanex HFA 200 mcg/actuation HFA aerosol inhaler 2 puff inhalation BID Spiriva Respimat 2.5 mcg/actuation mist 2 inh inhalation QAM albuterol sulfate 90 mcg/actuation HFA aerosol inhaler 1 puff inhalation QID clobetasol 0.05 % ointment 1 applic topical BID PRN (Reason: Rash; L30.8) Qty: 45 1RF Rx Instructions: Apply to affected area no more than 2 weeks per month, not for face/skin folds Flexeril 10 mg Tablet 10 mg PO DAILY PRN (Reason: Muscle Spasm) atorvastatin 20 mg Tablet 20 mg PO QAM albuterol sulfate 2.5 mg /3 mL (0.083 %) Solution For Nebulization 2.5 mg INHALATION QID clopidogrel 75 mg tablet 75 mg PO QAM baclofen 20 mg Tablet 40 mg PO TID calcium polycarbophil 625 mg Tablet 625 mg PO BID folic acid 1 mg Tablet 1 mg PO QAM triamcinolone acetonide 0.1 % ointment 1 applic topical BID PRN (Reason: unknown) Discharge Orders: Discharge ED (Routine); Ordered 04/06/23 Ordered By: Huey Lomeli Referrals: Datar,Zen Toussaint MD [Physician] - Reese Parrish DO [Primary Care Provider] - Patient Instructions: Lung Cancer (DC) Activity Restrictions/Additional Instructions: Take antibiotics as directed. Contact Dr. Perez, quantitative consultant, Sunday morning for further evaluation and treatment. Follow-up with primary care otherwise as noted. Return to ED for new concerns or worsening symptoms such as increasing shortness of breath, severe chest pain, inability to hold fluids down. Coding Level of Care Code ED Front Desk Auxiliary for Reanna Tejada
--- NOTE | 2023-04-06 13:28 | ECG_ITS ---
[facility] Test Date: 2023-04-06 Pat Name: Wilson Shane Department: Room: Gender: Male Scaffold Builder: : 1955 Requested By: Huey Rawls Order Number: [id number] Venu MD: Cinthya Edmonds M.D. Measurements Intervals [place] Rate: 72 P: 70 ND: 152 QRS: 72 QRSD: 77 T: 66 QT: 356 QTc: 392 Interpretive Statements SINUS RHYTHM MINIMAL VOLTAGE CRITERIA FOR LVH, CONSIDER NORMAL VARIANT [MEETS CRITERIA IN ONE OF: R(aVL), S(V1), R(V5), R(V5/V6)+S(V1)] EARLY REPOLARIZATION [ST ELEVATION WITH NORMALLY INFLECTED T-WAVE] Compared to ECG 07/06/2022 11:28:42 Early repolarization now present Electronically Signed On 04-06-2023 14:50:24 CDT by Cinthya Edmonds M.D. [email or web address]
--- NOTE | 2023-04-06 13:29 | CT_ITS ---
WS: [id number] CT CHEST ANGIOGRAPHY WITH REFORMATS HISTORY: abnormal cxr TECHNIQUE: Contiguous axial images are obtained through the chest during arterial injection of intrav enous contrast. Images are reconstructed to evaluate the pulmonary arteries. MIP imaging also reviewe d. All CT scans at [facility] use at least one of these dose optimization techniques: automat ed exposure control; mA and/or kV adjustment per patient size (includes targeted exams where dose is matched to clinical indication); or iterative reconstruction. CONTRAST: Omnipaque 350; 100 mL IV. DLP: 196.34 mGy.cm COMPARISON: Chest radiograph 05/30/2019, CT angio neck 04/21/2022, 04/24/[address] Good opacification of the pulmonary arteries. No pulmonary embolism. Mild atherosclerosis aorta. Norm al size heart. There is an air-fluid level in the RIGHT upper lobe. This is associated with a soft tissue mass cente red at the RIGHT hilum. On previous examinations there was a large bulla in this location. There is a soft tissue mass today centered at the RIGHT hilum with ill-defined margins measuring at least 7.2 x 7.9 cm. Complex fluid and an air-fluid level with adjacent pleural thickening and a few calcificatio ns. There is additional increased soft tissue extending posterior to the RIGHT mainstem bronchus into the mediastinum. On a prior radiograph from 05/30/2019 there is an irregular soft tissue mass in the RIGHT upper lobe for which additional imaging was recommended. Neoplastic changes were not excluded o n 04/24/2019. A small portion of the lung apices were included on a CT angiogram which demonstrated a bullous but did not include the hilar regions. There is narrowing of the bronchial tree in the RIGHT upper lobe and proximal RIGHT lower lobes. Chronic emphysema. Benign granulomas in the LEFT lung. No pleural effusions. No pericardial effusion. No osseous destructive lesions. No adrenal mass. IMPRESSION: 1. No pulmonary embolism. 2. Air-fluid level and consolidation in the RIGHT upper lobe. Dense consolidation with a soft tissue component at the hilum. Necrotic neoplasm needs to be excluded. Hydropneumothorax and air-fluid layer within an infected bulla within the differential. There is pleural thickening RIGHT upper lobe with soft tissue extending into the RIGHT hilum encasing the bronchopulmonary structures. Recommend endosc opy for further evaluation. Consolidation has been previously described in the RIGHT upper lobe in 20 19 for which further follow-up is recommended. 3. Mild atherosclerosis aorta. 4. No additional masses.
[2023-04-06 13:37] VITALS: BP 163/101; PULSE 77; RESP 18; O2SAT 99
[2023-04-06 13:51] LABS: Basophils # 0.1 10^3/uL (0.0-0.1); Basophils % 1.3 %; Eosinophils # 0.2 10^3/uL (0.0-0.8); Eosinophils % 2.5 %; Hematocrit 37.7 % (37-53); Lymphocytes % 15.2 %; Mean Corpuscular HGB Conc 30.8 g/dL (30-55); Mean Corpuscular Hemoglobin 29.6 pg (27-33); Mean Corpuscular Volume 96.2 fl (82-101); Mean Platelet Volume 8.3 fL (7.4-10.4); Monocytes # 1.1 10^3/uL (0.2-0.9); Monocytes % 17.4 %; Neutrophils # 3.99 10^3/uL (1.8-7.7); Neutrophils % 63.3 %; Nucleated Red Blood Cells % 0 %; Platelet Count 385 10^3/cmm (157-399); Red Blood Count 3.92 10^6/uL (3.85-5.65); Red Cell Distribution Width 13.7 % (12.1-15.1); White Blood Count 6.31 10^3/uL (3.29-11.43)
--- NOTE | 2023-04-06 13:57 | PC.PHAR ---
pts verified pts medications-[facility]
[2023-04-06 14:11] LABS: Alanine Aminotransferase 24 U/L (0-41); Albumin Level 3.2 g/dL (3.5-5.2); Alkaline Phosphatase 62 U/L (40-130); Aspartate Amino Transferase 21 U/L (0-40); Blood Urea Nitrogen 8 mg/dL (8-23); C Reactive Protein 130.2 mg/L (0.0-4.9); Calcium 9.3 mg/dL (8.5-10.5); Carbon Dioxide 23 mmol/L (22-29); Chloride 94 mmol/L (98-107); Globulin 4.9 g/dL (1.3-4.6); Glomerular Filtration Rate 134.8 mL/min (90-130); Glucose 95 mg/dL (65-115); Osmolality Calculated 268 mOsm/kg (285-295); Sodium 130 mmol/L (136-145); Total Bilirubin 0.3 mg/dL (0.15-1.2); Total Protein 8.1 g/dL (6.6-8.7)
[2023-04-06 14:12] LABS: Anion Gap 17.8 (5-19); Potassium 4.8 mmol/L (3.5-5.1)
[2023-04-06] MEDS: iohexol 350 mg/mL 500 mL Btl (per mL) IV (14:51)
[2023-04-06 14:52] VITALS: BP 154/98; PULSE 78; RESP 18; O2SAT 97
[2023-04-06] MEDS: sodium chloride 0.9% 500 ML 999 ML IV (14:52)
--- NOTE | 2023-04-09 11:44 | PC.SOCIAL ---
Pulmonology Referral Referral to clinic at this time. Clinic to contact patient with appt date/time.
== END 2023-04-06 15:59 | disposition home or self-care (01) ==
PROVIDERS: Emergency Provider Nurse Practitioner Family; PCP Emergency Medicine Emergency Medical Services
DX: R91.8 Other nonspecific abnormal finding of lung field (principal); Z79.02 Long term (current) use of antithrombotics/antiplatelets; Z79.82 Long term (current) use of aspirin; Z87.891 Personal history of nicotine dependence; J44.9 Chronic obstructive pulmonary disease, unspecified; I10 Essential (primary) hypertension; G35 Multiple sclerosis
CPT/HCPCS: 71275; 80053; 85025; 85378; 86140; 93005; 99285; J7040; Q9967

== ENCOUNTER → 2023-04-18 14:16 | Outpatient (BNVA) | payer OTHER, SELFPAY | PROVIDERS: PCP Emergency Medicine Emergency Medical Services; Visit Provider Nurse Practitioner Family | DX: L57.0 Actinic keratosis (principal); L60.3 Nail dystrophy; L57.8 Other skin changes due to chronic exposure to nonionizing radiation; L81.4 Other melanin hyperpigmentation; L85.3 Xerosis cutis | CPT/HCPCS: 17000; 99213 ==

== ENCOUNTER → 2023-06-11 14:31 | Outpatient (BNVA) | payer OTHER, SELFPAY | PROVIDERS: PCP Emergency Medicine Emergency Medical Services; Visit Provider Podiatrist Foot & Ankle Surgery | DX: B35.1 Tinea unguium (principal) | CPT/HCPCS: 36415; 80053; 99203 ==

== ENCOUNTER → 2023-07-30 13:29 | Outpatient (BNVA) | payer OTHER, SELFPAY | PROVIDERS: PCP Emergency Medicine Emergency Medical Services; Visit Provider Podiatrist Foot & Ankle Surgery | DX: B35.1 Tinea unguium (principal); B35.3 Tinea pedis | CPT/HCPCS: 99213 ==

== ENCOUNTER → 2023-08-21 13:59 | Outpatient (BNVA) | payer OTHER, SELFPAY | PROVIDERS: PCP Emergency Medicine Emergency Medical Services; Visit Provider Internal Medicine | DX: I10 Essential (primary) hypertension (principal); I65.29 Occlusion and stenosis of unspecified carotid artery; J44.9 Chronic obstructive pulmonary disease, unspecified; G35 Multiple sclerosis; Z98.890 Other specified postprocedural states; Z87.891 Personal history of nicotine dependence | CPT/HCPCS: 99214 ==

== ENCOUNTER → 2023-08-24 10:00 | Outpatient (BNVA) | payer OTHER, SELFPAY | PROVIDERS: PCP Emergency Medicine Emergency Medical Services; Referring Provider Emergency Medicine Emergency Medical Services; Visit Provider Internal Medicine | DX: I10 Essential (primary) hypertension (principal); Z98.890 Other specified postprocedural states; E87.1 Hypo-osmolality and hyponatremia | CPT/HCPCS: 99204 ==

== ENCOUNTER 2023-08-31 08:02 | Outpatient (CLI) | payer OTHER, SELFPAY ==
[2023-08-31 09:04] LABS: Free T4 Free Thyroxine 1.22 ng/dL (0.82-1.77); Thyroid Stimulating Hormone 4.09 uIU/mL (0.27-4.20)
== END 2023-08-31 08:03 | disposition home or self-care (01) ==
LOC: LAB 08:03
PROVIDERS: PCP Emergency Medicine Emergency Medical Services; Visit Provider Internal Medicine
DX: I10 Essential (primary) hypertension (principal); Z98.890 Other specified postprocedural states
CPT/HCPCS: 36415; 82533; 84439; 84443

== ENCOUNTER 2024-01-23 10:51 | Emergency (ER) | payer OTHER, SELFPAY ==
[2024-01-23] VITALS (8 sets, daily range): BP systolic 120–127; BP diastolic 71–79; PULSE 73–80; RESP 18; TEMP 36.3; O2SAT 93–96
--- NOTE | 2024-01-23 10:52 | XRR_ITS ---
PROCEDURE INFORMATION: Exam: XR Chest Exam date and time: 01/23/2024 10:57 AM Age: 68 years old Clinical indication: Cough with hemorrhage TECHNIQUE: Imaging protocol: Radiologic exam of the chest. Views: 1 view. COMPARISON: CT angio chest PE protcl [id number] 04/06/2023 3:00 PM FINDINGS: Lungs: Large right upper lobe pneumatocele cyst had previously contained consolidated lung and or fluid. Calcified granuloma on the left. Pleural spaces: Unremarkable. No pleural effusion. No pneumothorax. Heart/Mediastinum: The heart mediastinum are normal. Bones/joints: Unremarkable. XR/XR chest 1V portable [id number] IMPRESSION: Large cavity in the right upper lobe.
[2024-01-23 11:28] LABS: Basophils # 0.1 10^3/uL (0.0-0.1); Basophils % 1.4 %; Eosinophils # 0.3 10^3/uL (0.0-0.8); Eosinophils % 2.6 %; Hematocrit 40.8 % (37-53); Lymphocytes # 1.3 10^3/uL (0.8-4.8); Lymphocytes % 12.8 %; Mean Corpuscular HGB Conc 32.8 g/dL (30-55); Mean Corpuscular Hemoglobin 31.4 pg (27-33); Mean Corpuscular Volume 95.6 fl (82-101); Mean Platelet Volume 8.2 fL (7.4-10.4); Monocytes # 0.9 10^3/uL (0.2-0.9); Monocytes % 9.3 %; Neutrophils # 7.22 10^3/uL (1.8-7.7); Neutrophils % 73.6 %; Nucleated Red Blood Cells % 0 %; Platelet Count 323 10^3/cmm (157-399); Red Blood Count 4.27 10^6/uL (3.85-5.65); Red Cell Distribution Width 13.2 % (12.1-15.1)
[2024-01-23 11:39] LABS: INR 0.91 (0.8-1.2)
[2024-01-23 11:45] LABS: Alanine Aminotransferase 12 U/L (0-41); Alkaline Phosphatase 90 U/L (40-130); Anion Gap 17.5 (5-19); Aspartate Amino Transferase 18 U/L (0-40); Blood Urea Nitrogen 10 mg/dL (8-23); Calcium 9.3 mg/dL (8.5-10.5); Carbon Dioxide 21 mmol/L (22-29); Chloride 97 mmol/L (98-107); Creatinine Clr Calc Pharmacy 72.8561; Globulin 4.6 g/dL (1.3-4.6); Glomerular Filtration Rate 134.8 mL/min (90-130); Glucose 105 mg/dL (65-115); Osmolality Calculated 271 mOsm/kg (285-295); Potassium 4.5 mmol/L (3.5-5.1); Sodium 131 mmol/L (136-145); Total Bilirubin 0.4 mg/dL (0.15-1.2); Total Protein 8.6 g/dL (6.6-8.7)
--- NOTE | 2024-01-23 11:54 | ED_ITS ---
HPI - URI/Sore Throat 2 General: Chief Complaint: Upper Respiratory Infection Stated Complaint: [facility]ing [facility] Time Seen by Provider: 01/23/24 11:31 Source: patient Mode of arrival: ambulatory Limitations: no limitations History of Present Illness: 68-year-old male with history of COPD he also has a history of a lung cavitation from COVID states that he has been having hemoptysis since this morning. He denies any pain has had some mild dyspnea he states that he is coughed up some flecks of blood. He is in no distress here denies any vomiting. Associated symptoms: Deny abdominal pain, chills, chest pain, diarrhea, fever(s), headache(s), nausea or vomiting Review of Systems 2 Const: Denies: fever(s), chills, body aches or change in appetite ENMT: Denies: throat pain or dental pain Card: Denies: chest pain Resp: Reports: hemoptysis; Denies: dyspnea GI: Denies: abdominal pain, nausea, vomiting or diarrhea : Denies: dysuria Musc: Denies: neck pain or back pain Skin/Breast: Denies: rash Neuro: Denies: headache(s) PFSH ED 2 PFSH: Medical History Carotid stenosis, bilateral COPD (chronic obstructive pulmonary disease) Hypertension Multiple sclerosis Surgical History H/O carotid endarterectomy Family History Father CAD (coronary artery disease) Diabetes Hypertension Mother Stroke Denies family history of Cancer Social History Smoking and tobacco/nicotine status: former use of tobacco/nicotine Quit status (tobacco/nicotine): has quit using Year quit tobacco: 2018 Former quit date comment: 3.5 pack per day x 10 years Alcohol intake: never Substance/Drug Use: never Physical Exam 2 Const: COMMON NORMALS: no acute distress, patient oriented x3 and healthy appearing HENMT: COMMON NORMALS: normocephalic and atraumatic HEAD & SCALP: n ormocephalic and atraumatic Neck/C-Spine: COMMON NORMALS: full ROM and supple Chest: COMMONS NORMALS: normal inspection of the chest and normal palpation of entire chest wall Resp: COMMON NORMALS: normal respiratory effort, No retractions, No use of accessory muscles and clear to auscultation bilaterally AUSCULTATION: clear to auscultation bilaterally Cardio: COMMON NORMALS: regular rate, regular rhythm and No murmurs present (Cardio) RATE: regular rate RHYTHM: regular rhythm Extremity: COMMON NORMALS: normal to inspection and full ROM Neuro: COMMON NORMALS: patient oriented x3, moves all extremities and no focal motor deficits Psych: COMMON NORMALS: mental status grossly normal, Normal thought process present and cooperative THOUGHT PROCESS: Normal thought process present Skin: COMMON NORMALS: no rashes or lesions noted and no wounds GENERAL SKIN EXAM: no rashes or lesions noted Course 2 Vital Signs: Vital signs: Vital Signs Temperature 97.4 F L 01/23/24 11:05 Pulse Rate 73 01/23/24 15:00 Respiratory Rate 18 01/23/24 11:05 Blood Pressure 127/79 01/23/24 12:00 Pulse Oximetry 94 01/23/24 15:00 Oxygen Delivery Me thod Room Air 01/23/24 15:00 MDM - URI/Sore Throat Medical Decision Making Patient presents here with hemoptysis CT showed no acute mass or PE blood works normal put him on doxycycline for his cough he is follow-up with PCP and return if worsening he understands agrees to plan Medical Records I reviewed the patient's medical records. Lab Data I reviewed the patient's lab results. 01/23/24 11:20 01/23/24 11:20 Radiology Impressions Chest X-Ray 01/23/24 10:52 IMPRESSION: Large cavity in the right upper lobe. Laboratory Results WBC 9.80 10^3/uL (3.29-11.43) 01/23/24 11:20 RBC 4.27 10^6/uL (3.85-5.65) 01/23/24 11:20 Hgb 13.40 g/dL (11.27-16.99) 01/23/24 11:20 Hct 40.8 % (37-53) 01/23/24 11:20 MCV 95.6 fl (82-101) 01/23/24 11:20 MCH 31.4 pg (27-33) 01/23/24 11:20 MCHC 32.8 g/dL (30-55) 01/23/24 11:20 RDW 13.2 % (12.1-15.1) 01/23/24 11:20 Plt Count 323 10^3/cmm (157-399) 01/23/24 11:20 MPV 8.2 fL (7.4-10.4) 01/23/24 11:20 Neut % (Auto) 73.6 % 01/23/24 11:20 Lymph % (Auto) 12.8 % 01/23/24 11:20 [place] % (Auto) 9.3 % 01/23/24 11:20 Eos % (Auto) 2.6 % 01/23/24 11:20 Baso % (Auto) 1.4 % 01/23/24 11:20 Neut # (Auto) 7.22 10^3/uL (1.8-7.7) 01/23/24 11:20 Lymph # (Auto) 1.3 10^3/uL (0.8-4.8) 01/23/24 11:20 [place] # (Auto) 0.9 10^3/uL (0.2-0.9) 01/23/24 11:20 Eos # (Auto) 0.3 10^3/uL (0.0-0.8) 01/23/24 11:20 Baso # (Auto) 0.1 10^3/uL (0.0-0.1) 01/23/24 11:20 Nucleated RBC % (auto) 0 % 01/23/24 11:20 Nucleated RBCs # 0.0 /100WBC 01/23/24 11:20 PT 12.50 SECONDS (12.1-14.9) 01/23/24 11:20 INR 0.91 (0.8-1.2) 01/23/24 11:20 Sodium 131 mmol/L (136-145) L 01/23/24 11:20 Potassium 4.5 mmol/L (3.5-5.1) 01/23/24 11:20 Chloride 97 mmol/L (98-107) L 01/23/24 11:20 Carbon Dioxide 21 mmol/L (22-29) L 01/23/24 11:20 Anion Gap 17.5 (5-19) 01/23/24 11:20 BUN 10 mg/dL (8-23) 01/23/24 11:20 Creatinine 0.6 mg/dL (0.7-1.2) L 01/23/24 11:20 GFR Calculation 134.8 mL/min (90-130) H 01/23/24 11:20 Glucose 105 mg/dL (65-115) 01/23/24 11:20 Calculated Osmolality 271 mOsm/kg (285-295) L 01/23/24 11:20 Calcium 9.3 mg/dL (8.5-10.5) 01/23/24 11:20 Total Bilirubin 0.4 mg/dL (0.15-1.2) 01/23/24 11:20 AST 18 U/L (0-40) 01/23/24 11:20 ALT 12 U/L (0-41) 01/23/24 11:20 Alkaline Phosphatase 90 U/L (40-130) 01/23/24 11:20 Total Protein 8.6 g/dL (6.6-8.7) 01/23/24 11:20 Albumin 4.0 g/dL (3.5-5.2) 01/23/24 11:20 Globulin 4.6 g/dL (1.3-4.6) 01/23/24 11:20 All radiology interpretation(s) finalized by discharge Discharge Plan Discharge Patient Disposition: Home Clinical Impression: Hemoptysis Condition: Stable Prescriptions: New doxycycline hyclate 100 mg tablet 100 mg PO BID 7 Days Qty: 14 0RF No Action meloxicam 15 mg tablet 15 mg PO DAILY PRN (Reason: INFLAMMATION OR PAIN) amlodipine 10 mg tablet 10 mg PO QAM cholecalciferol (vitamin D3) 50 mcg (2,000 unit) capsule 50 mcg PO EVERY OTHER DAY atenolol 100 mg tablet 50 mg PO BID hydralazine 25 mg tablet 25 mg PO TID omeprazole 20 mg capsule,delayed release(DR/EC) 20 mg PO BID gabapentin 300 mg capsule 300 mg PO BEDTIME lisinopril 40 mg tablet 40 mg PO QAM ascorbic acid (vitamin C) 500 mg capsule 500 mg PO QAM dicyclomine 10 mg capsule 20 mg PO TID PRN (Reason: IBS) Asmanex HFA 200 mcg/actuation HFA aerosol inhaler 2 puff inhalation BID Spiriva Respimat 2.5 mcg/actuation mist 2 inh inhalation QAM albuterol sulfate 90 mcg/actuation HFA aerosol inhaler 1 puff inhalation QID PRN (Reason: BREATHNG) clobetasol 0.05 % ointment 1 applic topical BID PRN (Reason: Rash; L30.8) Qty: 45 1RF Rx Instructions: Apply to affected area no more than 2 weeks per month, not for face/skin folds terbinafine HCl 250 mg tablet 250 mg PO DAILY 30 Days Qty: 30 2RF cyclobenzaprine [Flexeril] 10 mg Tablet 10 mg PO DAILY PRN (Reason: Muscle Spasm) atorvastatin 20 mg Tablet 20 mg PO QAM albuterol sulfate 2.5 mg /3 mL (0.083 %) Solution For Nebulization 2.5 mg INHALATION QID PRN (Reason: BREATHING) clopidogrel 75 mg tablet 75 mg PO QAM folic acid 1 mg Tablet 1 mg PO QAM triamcinolone acetonide 0.1 % ointment 1 applic topical BID PRN (Reason: Rash) aspirin 325 mg Tablet 325 mg PO DAILY Discharge Orders: Discharge ED (Routine); Ordered 01/23/24 Ordered By: Stephen Ochoa Referrals: Reese Parrish DO [Primary Care Provider] - Discharge Diet: Advance as tolerated Discharge Activity: Resume usual activity Patient Instructions: Hemoptysis Coding Level of Care Code ED Visual Display Associate for Reanna Tejada
--- NOTE | 2024-01-23 11:56 | CT_ITS ---
WS: [id number] CTA OF THE CHEST WITH PULMONARY EMBOLISM PROTOCOL TECHNIQUE: High-resolution contrast enhanced CTA of the chest with coronal and sagittal reformatted i mages with pulmonary embolism protocol. MIP images are also reviewed. CLINICAL INFORMATION: hemoptysis COMPARISON: CTA 04/06/2023 DLP: 204.[address] scans at [facility] [place] use at least one of these dose optimization techniques: automated e xposure control; mA and/or kV adjustment per patient size (includes targeted exams where dose is matc hed to clinical indication); or iterative reconstruction. FINDINGS: Proximal main pulmonary arteries are normal. Normal visualized segmental and subsegmental pulmonary a rteries. No evidence of pulmonary embolus. Bulla formation RIGHT upper lobe. RIGHT upper lobe bulla measures approximately 10.1 x 5.7 cm. Soft t issue thickening and traction bronchiectasis along the RIGHT hilum. Diffuse pleural thickening RIGHT upper lobe and extending along the RIGHT hilum. Previously described soft tissue mass along the RIGHT hilum has improved compared to previous. Small amount of layering pleural fluid in the RIGHT upper l obe cavity. Prominent RIGHT pretracheal and RIGHT anterior mediastinal lymph nodes appear progressed from previou s the largest measuring 11 mm most likely reactive considering COVID history. Prominent lymph nodes a t the RIGHT thoracic inlet. Normal caliber thoracic aorta. Aortic calcification. Coronary calcificati on. No axillary lymphadenopathy. Adrenal glands are normal. Small esophageal hiatal hernia. Mild thoracic curve. Mild thoracic kyphosi s. Atrophic changes thoracic spine. Moderate chronic emphysematous changes. Lung bases are well aerated. A few calcified granulomas. No f ocal pneumonia. CT/CT angio chest PE protcl [id number] IMPRESSION: 1. Proximal main pulmonary arteries are normal. No evidence of pulmonary embol us. 2. No focal pneumonia. 3. Bulla formation RIGHT upper lobe with circumferential pleural thickening. R ecommend correlation with prior surgical or treatment related history. Traction bronchiectasis with soft tissue thickening extending along the RIGHT hilum sim ilar to the previous examination but improved in appearance. 4. Small amount of fluid in the RIGHT upper lobe bulla/cavity. 5. Moderate chronic emphysematous changes. 6. Few prominent RIGHT paratracheal and RIGHT thoracic inlet lymph nodes measu ring 10 to 11 mm likely reactive Notified Stephen Ochoa MD at 01/23/2024 3:04 PM.
--- NOTE | 2024-01-23 12:29 | PC.PHAR ---
PT IS [facility] FAXED A PARTIAL LIST-HAD TO REQUEST COMPLETE LIST 01/23/24 12:25PM
--- NOTE | 2024-01-23 13:07 | PC.NURSE ---
Note for 1200. thi snurse attempted x2 to start IV, unsuccessful. let charge nurse know pt needs IV for CT.
[2024-01-23] MEDS: iohexol 350 mg/mL 500 mL Btl (per mL) IV (14:33)
== END 2024-01-23 15:13 | disposition home or self-care (01) ==
PROVIDERS: Emergency Provider Emergency Medicine; PCP Emergency Medicine Emergency Medical Services
DX: R04.2 Hemoptysis (principal); Z79.82 Long term (current) use of aspirin; J44.9 Chronic obstructive pulmonary disease, unspecified; I10 Essential (primary) hypertension; G35 Multiple sclerosis; Z87.891 Personal history of nicotine dependence
CPT/HCPCS: 36415; 71045; 71275; 80053; 85025; 85610; 99285; Q9967

== ENCOUNTER 2024-04-25 11:54 | Outpatient (CLI) | payer OTHER, SELFPAY ==
--- NOTE | 2024-04-25 12:00 | USCV_ITS ---
Wilson Shane Age: 69 Gender: M : 1955 Exam Date: 04/25/2024 12:06 Ordering Phys: Nancie Guerrero Technologist: KATHI Exam Location: [facility] [place] Indication: Screening. HISTORY: Diameter (cm) AP x Transverse x Length Velocity (cm/s) Waveform Prox Aorta: 2.00 x 1.80 x 66.70 Triphasic Mid Aorta: 1.70 x 2.00 x 41.10 Triphasic Distal Aorta: 1.60 x 1.80 x 52.00 Triphasic Right Iliac Prox: 0.87 x 0.57 x 109.30 Triphasic Left Iliac Prox: 0.65 x 0.51 x 194.20 Triphasic Stent Prox Landing x x Aneurysmal Sac Max x x Lt Lat Sac Dim Rt Lat Sac Dim Stent Dist Landing x x Right Iliac Stent x x Left Iliac Stent x x Right Renal Art Left Renal Art FINDINGS: Comparison: none available. No evidence of abdominal aortic or bilateral iliac aneurysm. Atherosclerotic plaque is noted in the abdominal aorta. CONCLUSIONS No evidence of abdominal aortic aneurysm. Dr. Valentina Ojeda DO (Electronically Signed) Final Date: 25 April 2024 13:26 S
== END 2024-04-25 11:55 | disposition home or self-care (01) ==
LOC: RAD 11:54
PROVIDERS: PCP Emergency Medicine Emergency Medical Services; Visit Provider Nurse Practitioner
DX: Z01.89 Encounter for other specified special examinations (principal)
CPT/HCPCS: 76706

== ENCOUNTER 2024-05-30 21:12 | Emergency (ER) | payer OTHER, SELFPAY ==
[2024-05-30 21:17] VITALS: BP 170/93; PULSE 76; RESP 22; TEMP 36.6; O2SAT 99; BMI 25.6
[2024-05-30 21:51] VITALS: BP 143/80; PULSE 75; RESP 21; O2SAT 98
--- NOTE | 2024-05-30 21:53 | ECG_ITS ---
[facility] Pat Name: Wilson Shane Department: Room: Gender: Male Resource Economist: : 1955 Requested By: Josep Childers Order Number: [id number] Reading MD: PO VELEZ Measurements Intervals [place] Rate: 69 P: 63 TX: 132 QRS: 67 QRSD: 93 T: 46 QT: 319 QTc: 343 Interpretive Statements SINUS RHYTHM POSSIBLE LEFT ATRIAL ENLARGEMENT [-0.1mV P-WAVE IN V1/V2] NONSPECIFIC ST & T-WAVE ABNORMALITY Compared to ECG 04/06/2023 13:28:56 T-wave abnormality now present Early repolarization no longer present Electronically Signed On 06-02-2024 16:12:42 DRY BOX OPERATOR by PO VELEZ [email or web address]
--- NOTE | 2024-05-30 21:54 | XRR_ITS ---
PROCEDURE INFORMATION: Exam: XR Chest Exam date and time: 05/30/2024 10:11 PM Age: 69 years old Clinical indication: Shortness of breath; Patient HX: Partial RT pneumectomy; Increased SOB TECHNIQUE: Imaging protocol: Radiologic exam of the chest. Views: 1 view. COMPARISON: CT angio chest PE protcl [id number] 01/23/2024 2:25 PM FINDINGS: Tubes, catheters and devices: Surgical clips in the left side of the neck. Lungs: A large chronic relatively thick-walled cavity replacing most of the right upper lobe is slightly enlarged from 01/23/2024 from 01/23/2024. Moderate hyperinflation due to underlying emphysema. Mild bandlike atelectasis or scarring in the right costophrenic angle. Diffuse increased bronchial wall thickening. Pleural spaces: Small bilateral pleural effusions appear newly developed. A definitive pneumothorax is not visualized. However, small amount of air along the right chest wall/soft tissue emphysema is new. Heart/Mediastinum: Unremarkable. No cardiomegaly. Bones/joints: Mild dextroscoliosis and thoracic spondylosis. Remote fracture deformity of the right lateral 6th and 8th ribs. XR/XR chest 1V portable [id number] IMPRESSION: 1. No definitive pneumothorax . However, small amount of the air along the lateral right mid chest wall is newly developed . CT chest may be considered for further assessment, if no known recent intervention has been performed to account for this change. 2. Diffuse peribronchial thickening due to bronchitis/COPD exacerbation or early bronchopneumonia. New small pleural effusions. 3. Large right apical cavity has further mildly enlarged from December 2023.
[2024-05-30 22:25] VITALS: PULSE 74; RESP 18; O2SAT 95
[2024-05-30 22:25] LABS: Basophils % 0.4 %; Eosinophils % 0.6 %; Hematocrit 31.8 % (37-53); Lymphocytes # 0.4 10^3/uL (0.8-4.8); Lymphocytes % 5.4 %; Mean Corpuscular HGB Conc 31.4 g/dL (30-55); Mean Corpuscular Volume 89.1 fl (82-101); Mean Platelet Volume 8.5 fL (7.4-10.4); Monocytes # 0.5 10^3/uL (0.2-0.9); Monocytes % 7.6 %; Neutrophils # 6.09 10^3/uL (1.8-7.7); Neutrophils % 85.7 %; Nucleated Red Blood Cells % 0 %; Platelet Count 374 10^3/cmm (157-399); Red Blood Count 3.57 10^6/uL (3.85-5.65); Red Cell Distribution Width 14.9 % (12.1-15.1)
[2024-05-30] MEDS: ipratropium-albuterol 3 mL Neb INHALATION (22:25)
[2024-05-30 22:34] VITALS: BP 135/95; PULSE 72; RESP 20; O2SAT 95
[2024-05-30 22:36] LABS: ABG PCO2 46.5 mmHg (35-45); Arterial Blood Gas Hematocrit 30.4 % (42-52); Base Excess ABG 20.6 mmol/L (-2.0-2.0); Blood Gas Allen Test Pos; Blood Gas Sample Site Radial, right; Blood Gas Sample Type Arterial; Carboxyhemoglobin 1.2 %THgb (0.4-20.1); HCO3 ABG 44.5 mmol/L (22-26); HGB O2 Sat 93.3 % (95-100); Methemoglobin 1.1 % (0.4-1.5); Oxygen Device NC; PO2 ABG 68.8 mmHg (80.0-100.0); Total Hemoglobin 9.9 g/dL (14-18)
[2024-05-30 22:37] LABS: ABG PH Result 7.59 (7.35-7.45)
[2024-05-30 22:41] LABS: Lactic Sepsis W/Reflex 1.2 mmol/L (0.5-2.2)
[2024-05-30 22:50] LABS: Alanine Aminotransferase 13 U/L (0-41); Albumin Level 2.6 g/dL (3.5-5.2); Alkaline Phosphatase 53 U/L (40-130); Aspartate Amino Transferase 16 U/L (0-40); Blood Urea Nitrogen 7 mg/dL (8-23); Calcium 8.2 mg/dL (8.5-10.5); Chloride 90 mmol/L (98-107); Globulin 3.2 g/dL (1.3-4.6); Glomerular Filtration Rate 165.9 mL/min (90-130); Glucose 92 mg/dL (65-115); NT Pro B Type Natriuretic Pept 3867 pg/mL (0-125); Osmolality Calculated 284 mOsm/kg (285-295); Sodium 138 mmol/L (136-145); Total Bilirubin 0.4 mg/dL (0.15-1.2); Total Protein 5.8 g/dL (6.6-8.7)
[2024-05-30 22:51] LABS: Creatinine Clr Calc Pharmacy 73.7112
[2024-05-30 22:52] LABS: Carbon Dioxide 42 mmol/L (22-29)
--- NOTE | 2024-05-30 23:34 | ED_ITS ---
Documented by User: [email or web address] Mcmanus, DO 05/31/24 19:12 HPI - SOB/Dyspnea 2 General: Chief Complaint: Shortness of Breath/Dyspnea Stated Complaint: post lung removal right side filling Time Seen by Provider: 05/30/24 21:25 History of Present Illness: HPI Narrative: 69-year-old male patient who had chest s urgery at [facility] a couple of weeks ago. Evidently upper lobectomy was attempted, but was not completed fully due to scarring tissue. He had an area opened up lateral to his scapula on the right side that has a wound VAC present. He also has open wounds to his chest wall laterally on the right. He presents with shortness of breath, complaining that his lung feels full on that side. He denies fever. No vomiting. He has been using a bit more oxygen today than normal. Related Data Home Medications Medication Instructions Recorded Confirmed albuterol sulfate 90 mcg/actuation 1 puff inhalation QID PRN BREATHNG 04/13/22 01/23/24 aerosol inhaler amlodipine 10 mg tablet 10 mg PO QAM 04/13/22 01/23/24 ascorbic acid (vitamin C) 500 mg 500 mg PO QAM 04/13/22 01/23/24 capsule atenolol 100 mg tablet 50 mg PO BID 04/13/22 01/23/24 cholecalciferol (vitamin D3) 50 50 mcg PO EVERY OTHER DAY 04/13/22 01/23/24 mcg (2,000 unit) capsule dicyclomine 10 mg capsule 20 mg PO TID PRN IBS 04/13/22 01/23/24 gabapentin 300 mg capsule 300 mg PO BEDTIME 04/13/22 01/23/24 hydralazine 25 mg tablet 25 mg PO TID 04/13/22 01/23/24 lisinopril 40 mg tablet 40 mg PO QAM 04/13/22 01/23/24 meloxicam 15 mg tablet 15 mg PO DAILY PRN INFLAMMATION OR 04/13/22 01/23/24 PAIN mometasone 200 mcg/actuation HFA 2 puff inhalation BID 04/13/22 01/23/24 aerosol inhaler (Asmanex HFA) omeprazole 20 mg capsule,delayed 20 mg PO BID 04/13/22 01/23/24 release tiotropium bromide 2.5 2 inh inhalation QAM 04/13/22 01/23/24 mcg/actuation mist for inhalation (Spiriva Respimat) albuterol sulfate 2.5 mg/3 mL 2.5 mg inhalation QID PRN BREATHING 04/06/23 01/23/24 (0.083 %) solution for nebulization atorvastatin 20 mg tablet 20 mg PO QAM 04/06/23 01/23/24 clopidogrel 75 mg tablet 75 mg PO QAM 04/06/23 01/23/24 cyclobenzaprine 10 mg tablet 10 mg PO DAILY PRN Muscle Spasm 04/06/23 01/23/24 folic acid 1 mg tablet 1 mg PO QAM 04/06/23 01/23/24 triamcinolone acetonide 0.1 % 1 applic topical BID PRN Rash 04/06/23 01/23/24 topical ointment aspirin 325 mg tablet 325 mg PO DAILY 01/23/24 01/23/24 Previous Rx's Medication Instructions Recorded clobetasol 0.05 % topical ointment 1 applic topical BID PRN Rash; 10/16/22 L30.8 #45 grams terbinafine HCl 250 mg tablet 250 mg PO DAILY 30 days #30 tabs 06/14/23 magnesium oxide 400 mg PO TID #30 tabs 05/31/24 potassium chloride 20 mEq/15 mL 20 meq (15 mL) PO TID #450 mL 05/31/24 oral liquid Allergies Allergy/AdvReac Type Severity Reaction Status Date / Time No Known Allergies Allergy Verified 05/30/24 21:21 PFS ED 2 PFSH: Medical History Carotid stenosis, bilateral COPD (chronic obstructive pulmonary disease) Hypertension Multiple sclerosis Surgical History H/O carotid endarterectomy Family History Father CAD (coronary artery disease) Diabetes Hypertension Mother Stroke Denies family history of Cancer Social History Smoking and tobacco/nicotine status: former use of tobacco/nicotine Quit status (tobacco/nicotine): has quit using Year quit tobacco: 2018 Former quit date comment: 3.5 pack per day x 10 years Alcohol intake: never Substance/Drug Use: never Physical Exam 2 Const: GENERAL APPEARANCE: ill appearing (mildly) and frail appearing O RIENTATION/CONSCIOUSNESS: Yes awake, Yes oriented to person, Yes oriented to place and Yes oriented to time HENMT: COMMON NORMALS: normocephalic and atraumatic HEAD & SCALP: n ormocephalic and atraumatic FACE & SINUS: normal facial exam Eye: COMMON NORMALS: Equal, round and reactive pupils present and EOMs intact bilaterally PUPIL: Yes Equal, round and reactive pupils present Neck/C-Spine: GENERAL: Yes trachea midline Chest: OTHER: Wound VAC present lateral to the lateral scapular border. Edges are clean, nonreddened. Chest is bandaged laterally with foam tape. Resp: AUSCULTATION: diminished lung sounds (On the right) Cardio: COMMON NORMALS: regular rate and regular rhythm RATE: regular rate and not tachycardic RHYTHM: regular rhythm Neuro: SENSORIUM/ORIENTATION: Yes oriented to person, Yes oriented to place and Yes oriented to time Course 2 Vital Signs: Vital signs: Vital Signs Temperature 97.9 F 05/30/24 21:17 Pulse Rate 83 05/31/24 07:47 Respiratory Rate 24 H 05/31/24 06:40 Blood Pressure 146/90 05/31/24 07:47 Pulse Oximetry 100 05/31/24 07:47 Oxygen Delivery Me thod Nasal Cannula 05/31/24 02:13 Oxygen Flow Rate 3 05/31/24 02:13 MDM - SOB/Dyspnea Medical Decision Making This patient has been normotensive here. His heart rate is normal. He is not tachycardic. His chest x-ray shows no definitive new pneumothorax. There is some peribronchial thickening and small pleural effusions present now that are new since our last x-ray, which was before his procedure. His hemoglobin is 10. His white blood cell count is 7. His potassium came back at 2. This may be erroneous, and is being repeated. He is getting some potassium orally. His states that he did have low potassium in the hospital prior. Spoke with the hospitalist. He requests potassium repletion in the ER, with repeat testing. He has received 20 mill equivalents orally, and will receive 60 mill equivalents IV over 6 hours. Will retest potassium following. Patient is done with potassium infusion. Will repeat potassium after infusion. If patient is looking more normal at that point, we will release for discharge. Lab Data 05/30/24 22:11 05/31/24 05:39 Labs/Radiology: Radiology Impressions Chest X-Ray 05/30/24 21:54 IMPRESSION: 1. No definitive pneumothorax . However, small amount of the air along the lateral right mid chest wall is newly developed . CT chest may be considered for further assessment, if no known recent intervention has been performed to account for this change. 2. Diffuse peribronchial thickening due to bronchitis/COPD exacerbation or early bronchopneumonia. New small pleural effusions. 3. Large right apical cavity has further mildly enlarged from December 2023. ADDENDUM: 05/30/24 [id number] COMMENT: THIS REPORT CONTAINS FINDINGS THAT MAY BE CRITICAL TO PATIENT CARE. The exam findings were verbally communicated by me to JOSEP Santana via telephone conference at 11:24 PM CHIP MIXING MACHINE OPERATOR on 05/30/2024. The findings were acknowledged and understood. Additional provided history of recent attempted surgical resection with wound vac along the right lateral chest wall. This additional history would account for the observed chest wall air and enlargement of the right apical cavity/lucency. The coarsened peribronchial markings could still suggest superimposed exacerbation, pneumonitis or aspiration. Laboratory Results WBC 7.10 10^3/uL (3.29-11.43) 05/30/24 22:11 RBC 3.57 10^6/uL (3.85-5.65) L 05/30/24 22:11 Hgb 10.00 g/dL (11.27-16.99) L 05/30/24 22:11 Hct 31.8 % (37-53) L 05/30/24 22:11 MCV 89.1 fl (82-101) 05/30/24 22:11 MCH 28.0 pg (27-33) 05/30/24 22:11 MCHC 31.4 g/dL (30-55) 05/30/24 22:11 RDW 14.9 % (12.1-15.1) 05/30/24 22:11 Plt Count 374 10^3/cmm (157-399) 05/30/24 22:11 MPV 8.5 fL (7.4-10.4) 05/30/24 22:11 Neut % (Auto) 85.7 % 05/30/24 22:11 Lymph % (Auto) 5.4 % 05/30/24 22:11 Benson % (Auto) 7.6 % 05/30/24 22:11 Eos % (Auto) 0.6 % 05/30/24 22:11 Baso % (Auto) 0.4 % 05/30/24 22:11 Neut # (Auto) 6.09 10^3/uL (1.8-7.7) 05/30/24 22:11 Lymph # (Auto) 0.4 10^3/uL (0.8-4.8) L 05/30/24 22:11 Benson # (Auto) 0.5 10^3/uL (0.2-0.9) 05/30/24 22:11 Eos # (Auto) 0.0 10^3/uL (0.0-0.8) 05/30/24 22:11 Baso # (Auto) 0.0 10^3/uL (0.0-0.1) 05/30/24 22:11 Nucleated RBC % (auto) 0 % 05/30/24 22:11 Nucleated RBCs # 0.0 /100WBC 05/30/24 22:11 Specimen Type Arterial 05/30/24 22:26 Sample Site Radial, right 05/30/24 22:26 ABG pH 7.59 (7.35-7.45) H* 05/30/24 22:26 ABG pCO2 46.5 mmHg (35-45) H 05/30/24 22:26 ABG pO2 68.8 mmHg (80.0-100.0) L 05/30/24 22:26 ABG HCO3 44.5 mmol/L (22-26) H 05/30/24 22:26 ABG Base Excess 20.6 mmol/L (-2.0-2.0) H 05/30/24 22:26 Pedro Test Pos 05/30/24 22:26 Hematocrit 30.4 % (42-52) L 05/30/24 22:26 Hgb O2 Saturation 93.3 % (95-100) L 05/30/24 22:26 Carboxyhemoglobin 1.2 %THgb (0.4-20.1) 05/30/24 22:26 Methemoglobin 1.1 % (0.4-1.5) 05/30/24 22:26 Total Hemoglobin 9.9 g/dL (14-18) L 05/30/24 22:26 O2 Delivery Device Nc 05/30/24 22:26 O2 Liters/Min 2.0 % 05/30/24 22:26 Executor Of Estate ID [email or web address] 05/30/24 22:26 Sodium 138 mmol/L (136-145) 05/30/24 22:11 Potassium 2.5 mmol/L (3.5-5.1) L* D 05/31/24 05:39 Chloride 90 mmol/L (98-107) L 05/30/24 22:11 Carbon Dioxide 42 mmol/L (22-29) H* 05/30/24 22:11 Anion Gap 8.0 (5-19) 05/30/24 22:11 BUN 7 mg/dL (8-23) L 05/30/24 22:11 Creatinine 0.5 mg/dL (0.7-1.2) L 05/30/24 22:11 GFR Calculation 165.9 mL/min (90-130) H 05/30/24 22:11 Glucose 92 mg/dL (65-115) 05/30/24 22:11 Calculated Osmolality 284 mOsm/kg (285-295) L 05/30/24 22:11 Lactic Acid 1.2 mmol/L (0.5-2.2) 05/30/24 22:11 Calcium 8.2 mg/dL (8.5-10.5) L 05/30/24 22:11 Magnesium 1.8 mg/dL (1.7-2.3) 05/31/24 05:39 Total Bilirubin 0.4 mg/dL (0.15-1.2) 05/30/24 22:11 AST 16 U/L (0-40) 05/30/24 22:11 ALT 13 U/L (0-41) 05/30/24 22:11 Alkaline Phosphatase 53 U/L (40-130) 05/30/24 22:11 NT-Pro-B Natriuret Pep 3867 pg/mL (0-125) H 05/30/24 22:11 Total Protein 5.8 g/dL (6.6-8.7) L 05/30/24 22:11 Albumin 2.6 g/dL (3.5-5.2) L 05/30/24 22:11 Globulin 3.2 g/dL (1.3-4.6) 05/30/24 22:11 All radiology interpretation(s) finalized by discharge Discharge Plan Discharge Patient Disposition: Home Clinical Impression: Acute hypokalemia, Pulmonary edema determined by examination Condition: Stable Prescriptions: New magnesium oxide 400 mg magnesium tablet 400 mg PO TID Qty: 30 0RF potassium chloride 20 mEq/15 mL liquid 20 meq PO TID Qty: 450 0RF No Action meloxicam 15 mg tablet 15 mg PO DAILY PRN (Reason: INFLAMMATION OR PAIN) amlodipine 10 mg tablet 10 mg PO QAM cholecalciferol (vitamin D3) 50 mcg (2,000 unit) capsule 50 mcg PO EVERY OTHER DAY atenolol 100 mg tablet 50 mg PO BID hydralazine 25 mg tablet 25 mg PO TID omeprazole 20 mg capsule,delayed release(DR/EC) 20 mg PO BID gabapentin 300 mg capsule 300 mg PO BEDTIME lisinopril 40 mg tablet 40 mg PO QAM ascorbic acid (vitamin C) 500 mg capsule 500 mg PO QAM dicyclomine 10 mg capsule 20 mg PO TID PRN (Reason: IBS) Asmanex HFA 200 mcg/actuation HFA aerosol inhaler 2 puff inhalation BID Spiriva Respimat 2.5 mcg/actuation mist 2 inh inhalation QAM albuterol sulfate 90 mcg/actuation HFA aerosol inhaler 1 puff inhalation QID PRN (Reason: BREATHNG) clobetasol 0.05 % ointment 1 applic topical BID PRN (Reason: Rash; L30.8) Qty: 45 1RF Rx Instructions: Apply to affected area no more than 2 weeks per month, not for face/skin folds terbinafine HCl 250 mg tablet 250 mg PO DAILY 30 Days Qty: 30 2RF cyclobenzaprine [Flexeril] 10 mg Tablet 10 mg PO DAILY PRN (Reason: Muscle Spasm) atorvastatin 20 mg Tablet 20 mg PO QAM albuterol sulfate 2.5 mg /3 mL (0.083 %) Solution For Nebulization 2.5 mg INHALATION QID PRN (Reason: BREATHING) clopidogrel 75 mg tablet 75 mg PO QAM folic acid 1 mg Tablet 1 mg PO QAM triamcinolone acetonide 0.1 % ointment 1 applic topical BID PRN (Reason: Rash) aspirin 325 mg Tablet 325 mg PO DAILY Discharge Orders: Discharge ED (Routine); Ordered 05/31/24 Ordered By: Fabio Palomo Referrals: Reese Parrish DO [Primary Care Provider] - 1-3 days Patient Instructions: Hypokalemia (ED), Weakness (ED), Opioid Safety, Pain Management Activity Restrictions/Additional Instructions: Thank you for choosing [facility] for your healthcare needs today. It is very important that you follow up as instructed or that you return to the Emergency Department should you have concerns or if your condition changes or worsens in any way. You were seen in the emergency room with complaints regarding your recent surgery. Your white count and hemoglobin are within limits. Your potassium was extremely low and your magnesium was at the lower limits of normal. We have given you several doses of potassium despite this. It has seemed did not improve. We recommended hospitalization which you declined. After discussion we have written for you to have magnesium and potassium supplements. It is extremely important that you recheck your potassium and magnesium with your doctor on Sunday. We did discuss that the risk of your potassium getting too low could include arrhythmias which could even be fatal. He expressed understanding of this and still wished to be discharged. If you have any palpitations or chest discomfort rapid heart rate or other changes symptoms please return to the nearest emergency room. Take the potassium and magnesium supplements as prescribed. You are welcome at any point to return to the emergency room to be reassessed. Take a dose of the oral potassium this evening and take 3 doses tomorrow. You should take a single dose of the oral magnesium when you get home take another dose this in evening and 2 doses tomorrow. Coding Level of Care Code ED Flat Finisher for Chg Fwd Documented by User: Fabio Palomo DO 05/31/24 16:58 HPI - SOB/Dyspnea 2 General: Chief Complaint: Shortness of Breath/Dyspnea Stated Complaint: post lung removal right side filling Time Seen by Provider: 05/30/24 21:25 Related Data Home Medications Medication Instructions Recorded Confirmed albuterol sulfate 90 mcg/actuation 1 puff inhalation QID PRN BREATHNG 04/13/22 01/23/24 aerosol inhaler amlodipine 10 mg tablet 10 mg PO QAM 04/13/22 01/23/24 ascorbic acid (vitamin C) 500 mg 500 mg PO QAM 04/13/22 01/23/24 capsule atenolol 100 mg tablet 50 mg PO BID 04/13/22 01/23/24 cholecalciferol (vitamin D3) 50 50 mcg PO EVERY OTHER DAY 04/13/22 01/23/24 mcg (2,000 unit) capsule dicyclomine 10 mg capsule 20 mg PO TID PRN IBS 04/13/22 01/23/24 gabapentin 300 mg capsule 300 mg PO BEDTIME 04/13/22 01/23/24 hydralazine 25 mg tablet 25 mg PO TID 04/13/22 01/23/24 lisinopril 40 mg tablet 40 mg PO QAM 04/13/22 01/23/24 meloxicam 15 mg tablet 15 mg PO DAILY PRN INFLAMMATION OR 04/13/22 01/23/24 PAIN mometasone 200 mcg/actuation HFA 2 puff inhalation BID 04/13/22 01/23/24 aerosol inhaler (Asmanex HFA) omeprazole 20 mg capsule,delayed 20 mg PO BID 04/13/22 01/23/24 release tiotropium bromide 2.5 2 inh inhalation QAM 04/13/22 01/23/24 mcg/actuation mist for inhalation (Spiriva Respimat) albuterol sulfate 2.5 mg/3 mL 2.5 mg inhalation QID PRN BREATHING 04/06/23 01/23/24 (0.083 %) solution for nebulization atorvastatin 20 mg tablet 20 mg PO QAM 04/06/23 01/23/24 clopidogrel 75 mg tablet 75 mg PO QAM 04/06/23 01/23/24 cyclobenzaprine 10 mg tablet 10 mg PO DAILY PRN Muscle Spasm 04/06/23 01/23/24 folic acid 1 mg tablet 1 mg PO QAM 04/06/23 01/23/24 triamcinolone acetonide 0.1 % 1 applic topical BID PRN Rash 04/06/23 01/23/24 topical ointment aspirin 325 mg tablet 325 mg PO DAILY 01/23/24 01/23/24 Previous Rx's Medication Instructions Recorded clobetasol 0.05 % topical ointment 1 applic topical BID PRN Rash; 10/16/22 L30.8 #45 grams terbinafine HCl 250 mg tablet 250 mg PO DAILY 30 days #30 tabs 06/14/23 magnesium oxide 400 mg PO TID #30 tabs 05/31/24 potassium chloride 20 mEq/15 mL 20 meq (15 mL) PO TID #450 mL 05/31/24 oral liquid Allergies Allergy/AdvReac Type Severity Reaction Status Date / Time No Known Allergies Allergy Verified 05/30/24 21:21 PFSH ED 2 PFSH: Medical History Carotid stenosis, bilateral COPD (chronic obstructive pulmonary disease) Hypertension Multiple sclerosis Surgical History H/O carotid endarterectomy Family History Father CAD (coronary artery disease) Diabetes Hypertension Mother Stroke Denies family history of Cancer Social History Smoking and tobacco/nicotine status: former use of tobacco/nicotine Quit status (tobacco/nicotine): has quit using Year quit tobacco: 2017 Former quit date comment: 3.5 pack per day x 10 years Alcohol intake: never Substance/Drug Use: never Course 2 Vital Signs: Vital signs: Vital Signs Temperature 97.9 F 05/30/24 21:17 Pulse Rate 83 05/31/24 07:47 Respiratory Rate 24 H 05/31/24 06:40 Blood Pressure 146/90 05/31/24 07:47 Pulse Oximetry 100 05/31/24 07:47 Oxygen Delivery Me thod Nasal Cannula 05/31/24 02:13 Oxygen Flow Rate 3 05/31/24 02:13 MDM - SOB/Dyspnea Medical Decision Making This patient has been normotensive here. His heart rate is normal. He is not tachycardic. His chest x-ray shows no definitive new pneumothorax. There is some peribronchial thickening and small pleural effusions present now that are new since our last x-ray, which was before his procedure. His hemoglobin is 10. His white blood cell count is 7. His potassium came back at 2. This may be erroneous, and is being repeated. He is getting some potassium orally. His states that he did have low potassium in the hospital prior. Spoke with the hospitalist. He requests potassium repletion in the ER, with repeat testing. He has received 20 mill equivalents orally, and will receive 60 mill equivalents IV over 6 hours. Will retest potassium following. Patient is done with potassium infusion. Will repeat potassium after infusion. If patient is looking more normal at that point, we will release for discharge. Care assumed at change of shift repeat potassium still is only at 2.5 magnesium was checked is 1.8. Patient recent hospitalization that lasted over a month. He is not interested at all in admission. Offered observation to try to get his potassium back up to at least the lower limits of normal. He declines this. We discussed that this could be quite dangerous if his potassium got too low could lead to fatal arrhythmias. He expresses understanding of this but still wishes to go home he says that with the long recent hospitalization she just does not feel like he can mentally tolerate any more time in the hospital. He is quite frustrated now by his long ER stay was we tried to replace his potassium and avoid hospitalization. After careful conversation with him and his they do fully understand the risks but still wished to go home. Will give him prescriptions for potassium oral 20 mill equivalents 3 times a day along with magnesium 400 mg twice a day. He will be seen at his doctor's office in 48 hours. I expressed to him the importance of follow-up on the potassium and magnesium levels. If at any point he gets palpitations or rapid heart rate he should return to the emergency room immediately. Advised him we have given him quite a bit of potassium this morning he should take the first dose late this afternoon and take 3 more doses tomorrow. He should take both of his magnesium doses today. Lab Data 05/30/24 22:11 05/31/24 05:39 Labs/Radiology: Radiology Impressions Chest X-Ray 05/30/24 21:54 IMPRESSION: 1. No definitive pneumothorax . However, small amount of the air along the lateral right mid chest wall is newly developed . CT chest may be considered for further assessment, if no known recent intervention has been performed to account for this change. 2. Diffuse peribronchial thickening due to bronchitis/COPD exacerbation or early bronchopneumonia. New small pleural effusions. 3. Large right apical cavity has further mildly enlarged from December 2023. ADDENDUM: 05/30/24 [id number] COMMENT: THIS REPORT CONTAINS FINDINGS THAT MAY BE CRITICAL TO PATIENT CARE. The exam findings were verbally communicated by me to JOSEP Santana via telephone conference at 11:24 PM CHIP MIXING MACHINE OPERATOR on 05/30/2024. The findings were acknowledged and understood. Additional provided history of recent attempted surgical resection with wound vac along the right lateral chest wall. This additional history would account for the observed chest wall air and enlargement of the right apical cavity/lucency. The coarsened peribronchial markings could still suggest superimposed exacerbation, pneumonitis or aspiration. Laboratory Results WBC 7.10 10^3/uL (3.29-11.43) 05/30/24 22:11 RBC 3.57 10^6/uL (3.85-5.65) L 05/30/24 22:11 Hgb 10.00 g/dL (11.27-16.99) L 05/30/24 22:11 Hct 31.8 % (37-53) L 05/30/24 22:11 MCV 89.1 fl (82-101) 05/30/24 22:11 MCH 28.0 pg (27-33) 05/30/24 22:11 MCHC 31.4 g/dL (30-55) 05/30/24 22:11 RDW 14.9 % (12.1-15.1) 05/30/24 22:11 Plt Count 374 10^3/cmm (157-399) 05/30/24 22:11 MPV 8.5 fL (7.4-10.4) 05/30/24 22:11 Neut % (Auto) 85.7 % 05/30/24 22:11 Lymph % (Auto) 5.4 % 05/30/24 22:11 Benson % (Auto) 7.6 % 05/30/24 22:11 Eos % (Auto) 0.6 % 05/30/24 22:11 Baso % (Auto) 0.4 % 05/30/24 22:11 Neut # (Auto) 6.09 10^3/uL (1.8-7.7) 05/30/24 22:11 Lymph # (Auto) 0.4 10^3/uL (0.8-4.8) L 05/30/24 22:11 Benson # (Auto) 0.5 10^3/uL (0.2-0.9) 05/30/24 22:11 Eos # (Auto) 0.0 10^3/uL (0.0-0.8) 05/30/24 22:11 Baso # (Auto) 0.0 10^3/uL (0.0-0.1) 05/30/24 22:11 Nucleated RBC % (auto) 0 % 05/30/24 22:11 Nucleated RBCs # 0.0 /100WBC 05/30/24 22:11 Specimen Type Arterial 05/30/24 22:26 Sample Site Radial, right 05/30/24 22:26 ABG pH 7.59 (7.35-7.45) H* 05/30/24 22:26 ABG pCO2 46.5 mmHg (35-45) H 05/30/24 22:26 ABG pO2 68.8 mmHg (80.0-100.0) L 05/30/24 22:26 ABG HCO3 44.5 mmol/L (22-26) H 05/30/24 22:26 ABG Base Excess 20.6 mmol/L (-2.0-2.0) H 05/30/24 22:26 Pedro Test Pos 05/30/24 22:26 Hematocrit 30.4 % (42-52) L 05/30/24 22:26 Hgb O2 Saturation 93.3 % (95-100) L 05/30/24 22:26 Carboxyhemoglobin 1.2 %THgb (0.4-20.1) 05/30/24 22:26 Methemoglobin 1.1 % (0.4-1.5) 05/30/24 22:26 Total Hemoglobin 9.9 g/dL (14-18) L 05/30/24 22:26 O2 Delivery Device Nc 05/30/24 22:26 O2 Liters/Min 2.0 % 05/30/24 22:26 Executor Of Estate ID [email or web address] 05/30/24 22:26 Sodium 138 mmol/L (136-145) 05/30/24 22:11 Potassium 2.5 mmol/L (3.5-5.1) L* D 05/31/24 05:39 Chloride 90 mmol/L (98-107) L 05/30/24 22:11 Carbon Dioxide 42 mmol/L (22-29) H* 05/30/24 22:11 Anion Gap 8.0 (5-19) 05/30/24 22:11 BUN 7 mg/dL (8-23) L 05/30/24 22:11 Creatinine 0.5 mg/dL (0.7-1.2) L 05/30/24 22:11 GFR Calculation 165.9 mL/min (90-130) H 05/30/24 22:11 Glucose 92 mg/dL (65-115) 05/30/24 22:11 Calculated Osmolality 284 mOsm/kg (285-295) L 05/30/24 22:11 Lactic Acid 1.2 mmol/L (0.5-2.2) 05/30/24 22:11 Calcium 8.2 mg/dL (8.5-10.5) L 05/30/24 22:11 Magnesium 1.8 mg/dL (1.7-2.3) 05/31/24 05:39 Total Bilirubin 0.4 mg/dL (0.15-1.2) 05/30/24 22:11 AST 16 U/L (0-40) 05/30/24 22:11 ALT 13 U/L (0-41) 05/30/24 22:11 Alkaline Phosphatase 53 U/L (40-130) 05/30/24 22:11 NT-Pro-B Natriuret Pep 3867 pg/mL (0-125) H 05/30/24 22:11 Total Protein 5.8 g/dL (6.6-8.7) L 05/30/24 22:11 Albumin 2.6 g/dL (3.5-5.2) L 05/30/24 22:11 Globulin 3.2 g/dL (1.3-4.6) 05/30/24 22:11 Discharge Plan Discharge Patient Disposition: Home Clinical Impression: Acute hypokalemia, Pulmonary edema determined by examination Condition: Stable Prescriptions: New magnesium oxide 400 mg magnesium tablet 400 mg PO TID Qty: 30 0RF potassium chloride 20 mEq/15 mL liquid 20 meq PO TID Qty: 450 0RF No Action meloxicam 15 mg tablet 15 mg PO DAILY PRN (Reason: INFLAMMATION OR PAIN) amlodipine 10 mg tablet 10 mg PO QAM cholecalciferol (vitamin D3) 50 mcg (2,000 unit) capsule 50 mcg PO EVERY OTHER DAY atenolol 100 mg tablet 50 mg PO BID hydralazine 25 mg tablet 25 mg PO TID omeprazole 20 mg capsule,delayed release(DR/EC) 20 mg PO BID gabapentin 300 mg capsule 300 mg PO BEDTIME lisinopril 40 mg tablet 40 mg PO QAM ascorbic acid (vitamin C) 500 mg capsule 500 mg PO QAM dicyclomine 10 mg capsule 20 mg PO TID PRN (Reason: IBS) Asmanex HFA 200 mcg/actuation HFA aerosol inhaler 2 puff inhalation BID Spiriva Respimat 2.5 mcg/actuation mist 2 inh inhalation QAM albuterol sulfate 90 mcg/actuation HFA aerosol inhaler 1 puff inhalation QID PRN (Reason: BREATHNG) clobetasol 0.05 % ointment 1 applic topical BID PRN (Reason: Rash; L30.8) Qty: 45 1RF Rx Instructions: Apply to affected area no more than 2 weeks per month, not for face/skin folds terbinafine HCl 250 mg tablet 250 mg PO DAILY 30 Days Qty: 30 2RF cyclobenzaprine [Flexeril] 10 mg Tablet 10 mg PO DAILY PRN (Reason: Muscle Spasm) atorvastatin 20 mg Tablet 20 mg PO QAM albuterol sulfate 2.5 mg /3 mL (0.083 %) Solution For Nebulization 2.5 mg INHALATION QID PRN (Reason: BREATHING) clopidogrel 75 mg tablet 75 mg PO QAM folic acid 1 mg Tablet 1 mg PO QAM triamcinolone acetonide 0.1 % ointment 1 applic topical BID PRN (Reason: Rash) aspirin 325 mg Tablet 325 mg PO DAILY Discharge Orders: Discharge ED (Routine); Ordered 05/31/24 Ordered By: Fabio Palomo Referrals: Reese Parrish DO [Primary Care Provider] - 1-3 days Patient Instructions: Hypokalemia (ED), Weakness (ED), Opioid Safety, Pain Management Activity Restrictions/Additional Instructions: Thank you for choosing [facility] for your healthcare needs today. It is very important that you follow up as instructed or that you return to the Emergency Department should you have concerns or if your condition changes or worsens in any way. You were seen in the emergency room with complaints regarding your recent surgery. Your white count and hemoglobin are within limits. Your potassium was extremely low and your magnesium was at the lower limits of normal. We have given you several doses of potassium despite this. It has seemed did not improve. We recommended hospitalization which you declined. After discussion we have written for you to have magnesium and potassium supplements. It is extremely important that you recheck your potassium and magnesium with your doctor on Sunday. We did discuss that the risk of your potassium getting too low could include arrhythmias which could even be fatal. He expressed understanding of this and still wished to be discharged. If you have any palpitations or chest discomfort rapid heart rate or other changes symptoms please return to the nearest emergency room. Take the potassium and magnesium supplements as prescribed. You are welcome at any point to return to the emergency room to be reassessed. Take a dose of the oral potassium this evening and take 3 doses tomorrow. You should take a single dose of the oral magnesium when you get home take another dose this in evening and 2 doses tomorrow. Coding Level of Care Code ED Flat Finisher for Reanna Tejada
[2024-05-30 23:53] LABS: Potassium 1.8 mmol/L (3.5-5.1)
[2024-05-30] MEDS: potassium chloride ER 20 mEq Tablet 40 MEQ PO (23:58)
[2024-05-31] VITALS (61 sets, daily range): BP systolic 130–155; BP diastolic 79–94; PULSE 65–94; RESP 12–26; O2SAT 91–100
[2024-05-31] MEDS: lidocaine 1% 5 ML in potassium chloride premix 100 ML 52.5 ML IV (00:04)
[2024-05-31] MEDS: lidocaine 1% 5 ML in potassium chloride premix 100 ML 26.25 ML IV (02:32)
[2024-05-31 06:04] LABS: Potassium 2.5 mmol/L (3.5-5.1)
[2024-05-31 06:50] LABS: Magnesium 1.8 mg/dL (1.7-2.3)
[2024-05-31] MEDS: potassium chloride oral liq 20 mEq/15 mL UDC 60 MEQ PO (07:26)
== END 2024-05-31 07:48 | disposition home or self-care (01) ==
PROVIDERS: Emergency Medicine; Emergency Provider Family Medicine; PCP Emergency Medicine Emergency Medical Services
DX: E87.6 Hypokalemia (principal); J81.1 Chronic pulmonary edema; Z79.02 Long term (current) use of antithrombotics/antiplatelets; Z87.891 Personal history of nicotine dependence; J44.9 Chronic obstructive pulmonary disease, unspecified; I10 Essential (primary) hypertension
CPT/HCPCS: 36415; 36600; 71045; 80053; 82805; 83605; 83735; 83880; 84132; 85025; 93005; 94640; 96365; 96366; 99285; J3480